=== PATIENT | male | born 1955 | race Caucasian/White ===

== ENCOUNTER 2016-08-06 14:41 | Inpatient (IN) | payer OTHER ==
--- NOTE | 2016-08-06 14:54 | EDPHY ---
HPI/HX/ROS/PE/MDM Narrative: CHIEF COMPLAINT: Nausea, vomiting. HISTORY OF PRESENT ILLNESS: The patient is a 60-year-old male that is developmentally impaired, who was brought in by EMS due to nausea and vomiting for the past week. The patient states he was unable to get up due to weakness. During transport patient was found to be hyperglycemic. The patient states he has been urinating a lot. He continues to complain of thirst. He denies fever, chills, chest pain, shortness of breath, palpitations, headache, lightheadedness. The patient has no known history of diabetes. The patient's coach builder arrived. She states the patient has been sick for the past week. He had to go home from work early. The patient was incontinent of urine. He had four days of diarrhea. This morning the patient began vomiting this morning. Mentation today was decreased, patient seemed to be disoriented. REVIEW OF SYSTEMS: Aside from elements discussed in the HPI, a comprehensive 10-point review of systems was reviewed and is negative. PAST MEDICAL HISTORY: Developmental delay. SOCIAL HISTORY: Lives independently by himself. VITAL SIGNS: Reviewed by me. GENERAL: Ketones on breath. Tachypneic. HEENT: Atraumatic. Eyes: No icterus, no injection. Mouth: Very dry mucous membranes. No erythema or lesions. Neck: supple with no adenopathy. LUNGS: Audible wheezes, hypoxic at 84%. CARDIAC: Tachycardic at 120-130, regular rhythm, no rubs, murmurs or gallops. ABDOMEN: Distended. Voluntary guarding diffusely. Soft. BACK: No CVA tenderness. EXTREMITIES: No trauma. No edema. Range of motion is normal throughout. NEURO: Alert and oriented, grossly nonfocal. SKIN: Warm and dry, no rash. PSYCHIATRIC: Normal mentation, no agitation. Portions of this note were transcribed by a medical scientific liaison. I personally performed a history, physical exam, medical decision making, and confirmed accuracy of information the transcribed note. ED Course: The patient is a 60-year-old male with developmental delay who was brought in by EMS for 1 week of nausea and vomiting. The patient has ketones on his breath. Patient is tachycardic. BGL during transport was too high to be read. The patient complains of extreme thirst and has been urinating frequently. Mucous membranes are extremely dry. The patient has no known history of diabetes. Patient appears to be in diabetic ketoacidosis. IV was established, patient is receiving fluids. I ordered an EKG, chest x-ray, labs, and UA. The patient has a creatinine of 5.4. iSTAT shows K 6.4, CO2: 9, and Glucose of 1060. The patient received 10 units of insulin. He received calcium gluconate for hyperkalemia. He was started on an insulin drip. The patient additionally received sodium bicarbonate. An X-ray of the chest was obtained. I viewed the images myself on the PACS system. See the full radiology report in the imaging section. 1605: I spoke to the hospitalist, Dr. Jenkins, who will admit the patient. 1615: The patient had an episode of dark emesis. He states he is feeling better. MDM: Diff dx considered included DKA, starvation ketosis, alcoholic ketosis, renal failure, metabolic acidosis, overdose. - Data Points Imaging Results: Imaging Impressions Chest X-Ray 08/06/16 14:56 Impression: Hypoventilation and bibasilar atelectasis. Laboratory Results: Laboratory Results 08/06/16 14:40 08/06/16 14:40 08/06/16 08/06/16 14:40 14:40 WBC 18.34 10^3/uL H 10^3/uL (3.80-9.50) RBC 5.96 10^6/uL 10^6/uL (4.40-6.38) Hgb 18.1 g/dL H g/dL (13.7-17.5) Hct 58.4 % H % (40.0-51.0) MCV 98.0 fL fL (81.5-99.8) MCH 30.4 pg pg (27.9-34.1) MCHC 31.0 g/dL L g/dL (32.4-36.7) RDW 13.1 % % (11.5-15.2) Plt Count 331 10^3/uL 10^3/uL (150-400) MPV 10.7 fL fL (8.7-11.7) Neut % (Auto) 89.6 % H % (39.3-74.2) Lymph % (Auto) 2.0 % L % (15.0-45.0) [place] % (Auto) 7.4 % % (4.5-13.0) Eos % (Auto) 0.0 % L % (0.6-7.6) Baso % (Auto) 0.2 % L % (0.3-1.7) Nucleat RBC Rel Count 0.0 % % (0.0-0.2) Absolute Neuts (auto) 16.45 10^3/uL H 10^3/uL (1.70-6.50) Absolute Lymphs (auto) 0.36 10^3/uL L 10^3/uL (1.00-3.00) Absolute Monos (auto) 1.35 10^3/uL H 10^3/uL (0.30-0.80) Absolute Eos (auto) 0.00 10^3/uL L 10^3/uL (0.03-0.40) Absolute Basos (auto) 0.03 10^3/uL 10^3/uL (0.02-0.10) Absolute Nucleated RBC 0.00 10^3/uL 10^3/uL (0-0.01) Immature Gran % 0.8 % % (0.0-1.1) Immature Gran # 0.15 10^3/uL H 10^3/uL (0.00-0.10) Sodium 131 mEq/L L mEq/L (134-144) Potassium 6.4 mEq/L H* mEq/L (3.5-5.2) Chloride 89 mEq/L L mEq/L (97-110) Carbon Dioxide 9 mEq/l L* mEq/l (22-31) Anion Gap 33 mEq/L H mEq/L (8-16) BUN 48 mg/dL H mg/dL (7-23) Creatinine 5.4 mg/dL H mg/dL (0.7-1.3) Estimated GFR 11 Glucose 1060 mg/dL H* mg/dL (70-100) Calcium 9.7 mg/dL mg/dL (8.5-10.4) Phosphorus 9.9 mg/dL H mg/dL (2.5-4.5) Magnesium 2.8 mg/dL H mg/dL (1.6-2.3) Beta-Hydroxybutyrate Pending Medications Given: Discontinued Medications Calcium Gluconate (Calcium Gluconate) 1 gm IVP EDNOW ONE Stop: 08/06/16 15:58 Last Admin: 08/06/16 16:05 Dose: 1 gm Sodium Chloride (Ns) 1,000 mls @ 0 mls/hr IV ONCE ONE PRN Reason: Wide Open Stop: 08/06/16 14:56 Last Admin: 08/06/16 14:59 Dose: 1,000 mls Sodium Chloride (Ns) 1,000 mls @ 0 mls/hr IV ONCE ONE PRN Reason: Wide Open Stop: 08/06/16 14:56 Last Admin: 08/06/16 15:20 Dose: 1,000 mls Insulin Human Regular (Humulin R) 10 unit IVP EDNOW ONE Stop: 08/06/16 15:53 Last Admin: 08/06/16 16:01 Dose: 10 unit Ondansetron HCl (Zofran) 4 mg IVP EDNOW ONE Stop: 08/06/16 15:24 Last Admin: 08/06/16 15:37 Dose: 4 mg General Initial Vital Signs: Initial Vital Signs Temperature (C) 37 C 08/06/16 14:41 Heart Rate 123 H 08/06/16 14:41 Respiratory Rate 22 H 08/06/16 14:41 Blood Pressure 121/81 H 08/06/16 14:41 O2 Sat (%) 87 L 08/06/16 14:41 O2 Delivery Mode Nasal Cannula O2 (L/minute) 2 Allergies/Adverse Reactions: No Known Allergies Allergy (Verified 08/06/16 16:48) Home Medications: Medication Instructions Recorded Loperamide HCl [Imodium 2 mg (*)] 2 - 4 mg PO Q4H PRN 08/06/16 Departure - Departure Disposition: [facility] Acute Clinical Impression: Ketoacidosis, Hyperkalemia DKA (diabetic ketoacidoses) Qualifiers: Diabetes mellitus type: due to underlying condition Diabetes mellitus complication detail: without coma Qualified Code(s): E08.10 - Diabetes mellitus due to underlying condition with ketoacidosis without coma Condition: Serious Report Scribed for: Tosin Moreno Report Scribed by: Katiuska Faye Date of Report: 08/06/16 Time of Report: 15:00
[2016-08-06] MEDS ORDERED: NS 1,000 ML IV ONE ×6 (14:55→20:00)
[2016-08-06 15:01] LABS: % IMMATURE GRANULYOCYTES 0.8 % (0.0-1.1); ABSOLUTE IMMATURE GRANULOCYTES 0.15 10^3/uL (0.00-0.10); ADD DIFF? NO; ADD MORPH? NO; ADD SCAN? NO; ATYPICAL LYMPHOCYTE FLAG 0 (0-99); FRAGMENT RBC FLAG 0 (0-99); HEMATOCRIT 58.4 % (40.0-51.0); HEMOGLOBIN 18.1 g/dL (13.7-17.5); LEFT SHIFT FLG 0 (0-99); LIPEMIA HEMOLYSIS FLAG 80 (0-99); MEAN CELL HEMOGLOBIN 30.4 pg (27.9-34.1); MEAN PLATELET VOLUME 10.7 fL (8.7-11.7); PLATELET CLUMPS FLAG 0 (0-99); PLATELET COUNT 331 10^3/uL (150-400); RED BLOOD CELL COUNT 5.96 10^6/uL (4.40-6.38); RED CELL DISTRIBUTION WIDTH 13.1 % (11.5-15.2)
--- NOTE | 2016-08-06 15:07 | CPEKG ---
Heart Rate: 105 RR Interval: 571 P-R Interval: 148 QRSD Interval: 106 QT Interval: 396 QTC Interval: 524 P [place]: 22 QRS [place]: 118 T Wave [place]: 45 EKG Severity - ABNORMAL ECG - EKG Impression: SINUS TACHYCARDIA EKG Impression: LEFT POSTERIOR FASCICULAR BLOCK EKG Impression: PROLONGED QT INTERVAL Electronically Signed By: Todd Hansen 08-Aug-2016 00:55:24
[2016-08-06 15:19] LABS: CALCIUM 9.7 mg/dL (8.5-10.4); CHLORIDE 89 mEq/L (97-110); CREATININE 5.4 mg/dL (0.7-1.3); GLOMERULAR FILTRATION RATE 11; MAGNESIUM 2.8 mg/dL (1.6-2.3); SODIUM 131 mEq/L (134-144)
[2016-08-06] MEDS ORDERED: ONDANSETRON 4 MG/2 ML VIAL IVP ONE (15:23)
[2016-08-06 15:39] LABS: ANION GAP 33 mEq/L (8-16)
[2016-08-06] MEDS ORDERED: INSULIN REGULAR HUMAN 100 UNIT/ML IVP ONE (15:52)
[2016-08-06 15:55] LABS: CARBON DIOXIDE 9 mEq/l (22-31)
[2016-08-06 15:56] LABS: GLUCOSE 1060 mg/dL (70-100)
[2016-08-06 15:57] LABS: POTASSIUM 6.4 mEq/L (3.5-5.2)
[2016-08-06] MEDS ORDERED: CALCIUM GLUC 10% 1 GM/10 ML VIAL IVP ONE (15:57)
[2016-08-06] MEDS ORDERED: INSULIN REGULAR HUMAN 100 UNIT, COSIGN. REQUIRED 1 EA in NS 100 ML IV ONE (16:11)
[2016-08-06] MEDS ORDERED: SODIUM BICARBONATE 50 MEQ/50 ML SYR IVP ONE ×2 (16:12)
[2016-08-06] MEDS ORDERED: NA BICARBONATE 50 MEQ/50 ML VIAL ONE (16:32)
[2016-08-06] MEDS ORDERED: ONDANSETRON DISINTEGRATING 4 MG TAB PO PRN (16:44)
[2016-08-06] MEDS ORDERED: oxyCODONE IR 5 MG TAB PO PRN (16:44)
[2016-08-06 16:58] LABS: ANION GAP 20 mEq/L (8-16); CALCIUM 6.3 mg/dL (8.5-10.4); CARBON DIOXIDE 8 mEq/l (22-31); CHLORIDE 109 mEq/L (97-110); CREATININE 3.8 mg/dL (0.7-1.3); GLOMERULAR FILTRATION RATE 16; SODIUM 137 mEq/L (134-144)
[2016-08-06 17:03] LABS: INR 1.06 (0.83-1.16); PROTIME(PATIENT) 13.7 SEC (12.0-15.0)
[2016-08-06 17:13] LABS: GLUCOSE 763 mg/dL (70-100); SPECIMEN HEMOLYSIS 362
[2016-08-06 17:17] LABS: POTASSIUM 6.4 mEq/L (3.5-5.2)
--- NOTE | 2016-08-06 17:44 | GHP ---
[f rep st] HISTORY AND PHYSICAL DATE OF ADMISSION: 08/06/2016 CHIEF COMPLAINT: Nausea, vomiting. HISTORY OF PRESENT ILLNESS: This is a 60-year-old man with a developmental delay, lives independently with significant support system, presents with about 1 week of abdominal pain, nausea, vomiting with diarrhea. When I am seeing him , he has received IV hydration and tells me that he feels better. His abdominal pain is not really there anymore. He has not had any diarrhea recently. He did have one episode of emesis, which was dark, in the emergency department. His brother, who found him, said that he had vomit all over the bed and suspects significant episodes of emesis. Notably, he has no history of diabetes. He does not take any insulin. PAST MEDICAL HISTORY: He actually does not have any other medical problems. MEDICATIONS: He takes no medications. PAST MEDICAL HISTORY: Developmental delay. He operates at about a 10 to 12- year-old level. MEDICATIONS: None. ALLERGIES: None. FAMILY HISTORY: No diabetes. His father had lymphoma. SOCIAL HISTORY: He lives independently. He has help from [employer] with a health care / medical job titles. His mother and brother are very involved in his care as well. He actually has 2 jobs as well. 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 REVIEW OF SYSTEMS: A 10-point review of systems is conducted and is negative, except per HPI. PHYSICAL EXAMINATION: VITAL SIGNS: Blood pressure 123/81, heart rate 113, respiration rate 20, saturating 95% on 2 L, temperature is 36.6. GENERAL: The patient is a pleasant man, who is breathing quite heavily, appears quite distressed. HEENT: Shows him to be normocephalic, atraumatic. CARDIOVASCULAR : Regular rate and rhythm. I do not appreciate any murmurs, rubs, or gallops. PULMONARY: Shows him to be in moderate to severe respiratory distress, but his lungs are clear bilaterally. ABDOMEN: Soft, nontender, nondistended. SKIN : Shows no rash. : Shows no Harris. NEUROLOGIC: Shows him to be alert and oriented x3. PSYCHIATRIC: Shows normal mood and affect. LABS: Notable for white count of 18.3. Glucose of 1060, bicarb of 9, potassium is 6.4, sodium 131, phosphorus of 9.9. Repeat basic metabolic panel is pending. DATA: 1. ECG, which I personally reviewed and interpreted, shows sinus rhythm. He has peaked T-waves throughout the precordium. He has a prolonged QT interval. 2. Chest x-ray, which I personally reviewed and interpreted, shows poor inspiratory effort. Otherwise nothing acute. IMPRESSION AND PLAN: This is a 60-year-old man with severe acidosis and hyperglycemia. 1. Anion gap metabolic acidosis, suspect that this is ketosis. He may have a starvation ketosis versus a diabetic ketoacidosis. He has been aggressively hydrated and has received insulin. Will recheck his acid base status here soon. It is rare to have a new diagnosis of DM1 in a 60 year old - if he does have DM1 would consider pancreatic imaging. 2. Hyperglycemia. No previous history of DM. I suspect this is more a HONC picture than DKA, however the treatment is the same and I will put him on the DKA protocol. I will check a c-peptide and A1c. 3. Hyperkalemia due to renal failure. This is marked. He has peaked T-waves on his initial EKG. I have ordered a stat repeat basic metabolic panel. If this is not improved, I will involve Renal, though I suspect this will improve with the interventions he has gotten including bicarb, insulin, and IV fluids. 4. Acute renal failure, pre-renal creatinine 5.4. Given his elevated phos and only slightly elevated BUN, suspect that there may be more of a chronic component to this as well. His last creatinine in our system was 1.0 however. Will aggressively rehydrate him. Repeat check is pending right now. I will check urine electrolytes as well. If this is not improving, would involve Renal. If he does not urinate, will perform a bladder scan and consider renal ultrasound. 5. Prolonged QT interval. Will be careful with QT prolonging medications. I will not give him IV Zofran. However, will keep p.o. on there as an option. I suspect that his interval will improve with correction of his acid base disorder. 6. Hypoxia. No clear reason for this. Will follow this closely. He is wheezing mildly. He may have slightly aspirated while vomiting. Monitor off antibiotics for now. 7. Developmental delay. He is quite conversant and lives independently. His brother and mother are very involved in his care. 8. Leukocytosis. I suspect that this is stress. No evidence of an infection. Urinalysis is pending right now. 9. Hemoconcentration. He is getting IV fluids. His hemoglobin is 18.1. 10. Code status is full. 11. Venous thromboembolism risk is moderate to high. I have given him subcu heparin. BILLING: I spent a total of 50 minutes of critical care time on this patient. /[id number]/MODL MTDD
[2016-08-06] MEDS ORDERED: INSULIN REGULAR HUMAN 100 UNIT in NS 100 ML IV SCH (18:22)
[2016-08-06] MEDS ORDERED: D5W 1,000 ML IV SCH (18:22)
[2016-08-06] MEDS ORDERED: D50W 25 GM/50 ML SYR IVP PRN (18:22)
[2016-08-06] MEDS ORDERED: INSULIN REGULAR HUMAN 100 UNIT/ML IVP PRN (18:22)
[2016-08-06] MEDS ORDERED: ONDANSETRON 4 MG/2 ML VIAL ONE (18:27)
[2016-08-06] MEDS ORDERED: PROTOCOL POTASSIUM 1 DOSE MISC PRN (18:31)
[2016-08-06] MEDS ORDERED: PROTOCOL MAGNESIUM 1 DOSE IV PRN (18:31)
[2016-08-06] MEDS: ONDANSETRON 4 MG/2 ML VIAL IVP PRN (18:41)
[2016-08-06 18:58] LABS: CHOLESTEROL 223 mg/dL (140-220); HIGH DENSITY LIPOPROTEIN 77 mg/dL (40-65); LDL/HDL RATIO 1.61 RATIO (1.00-3.64); LOW DENSITY LIPOPROTEIN 124 mg/dL (80-100); NON-HIGH DENSITY LIPOPROTEIN 146 mg/dL (90-129); TRIGLYCERIDE 110 mg/dL (40-150); VERY LOW DENSITY LIPOPROTEINS 22 mg/dL (8-25)
[2016-08-06 19:17] LABS: ALBUMIN 3.9 g/dL (3.5-5.0); BILIRUBIN,TOTAL 0.9 mg/dL (0.1-1.4); BILIRUBIN-CONJUGATED 0.6 mg/dL (0.0-0.5); BILIRUBIN-UNCONJUGATED 0.3 mg/dL (0.0-1.1); TOTAL PROTEIN 6.2 g/dL (6.3-8.2)
[2016-08-06] MEDS: METOCLOPRAMIDE 10 MG/2 ML VIAL IVP PRN (19:41)
[2016-08-06 20:01] LABS: GLUCOSE 787 mg/dL (70-100)
[2016-08-06] MEDS: NS 1,000 ML IV SCH (20:16)
[2016-08-06 20:32] LABS: ANION GAP 21 mEq/L (8-16); CALCIUM 8.2 mg/dL (8.5-10.4); CARBON DIOXIDE 14 mEq/l (22-31); CHLORIDE 104 mEq/L (97-110); CREATININE 4.3 mg/dL (0.7-1.3); GLOMERULAR FILTRATION RATE 14; MAGNESIUM 2.3 mg/dL (1.6-2.3); POTASSIUM 4.2 mEq/L (3.5-5.2); SODIUM 139 mEq/L (134-144)
[2016-08-06 20:53] LABS: GLUCOSE 658 mg/dL (70-100)
[2016-08-06] MEDS: TEMAZEPAM 15 MG CAP PO PRN (21:29)
[2016-08-07] MEDS: HEPARIN 5,000 UNIT/0.5 ML SYR SC SCH ×4 (00:18→22:09)
[2016-08-07] MEDS: NS 1,000 ML IV SCH (00:28)
[2016-08-07 04:14] LABS: % IMMATURE GRANULYOCYTES 0.6 % (0.0-1.1); ABSOLUTE IMMATURE GRANULOCYTES 0.09 10^3/uL (0.00-0.10); ADD DIFF? NO; ADD MORPH? NO; ADD SCAN? NO; ATYPICAL LYMPHOCYTE FLAG 0 (0-99); FRAGMENT RBC FLAG 0 (0-99); HEMATOCRIT 43.5 % (40.0-51.0); HEMOGLOBIN 14.7 g/dL (13.7-17.5); LEFT SHIFT FLG 10 (0-99); LIPEMIA HEMOLYSIS FLAG 90 (0-99); MEAN CELL HEMOGLOBIN 30.2 pg (27.9-34.1); MEAN CELL HEMOGLOBIN CONCENTR. 33.8 g/dL (32.4-36.7); MEAN CELL VOLUME 89.5 fL (81.5-99.8); MEAN PLATELET VOLUME 9.9 fL (8.7-11.7); PLATELET CLUMPS FLAG 0 (0-99); PLATELET COUNT 226 10^3/uL (150-400); RED BLOOD CELL COUNT 4.86 10^6/uL (4.40-6.38); RED CELL DISTRIBUTION WIDTH 12.7 % (11.5-15.2)
[2016-08-07 04:38] LABS: ALANINE AMINOTRANSFERASE 41 IU/L (21-72); ALBUMIN 3.3 g/dL (3.5-5.0); ALKALINE PHOSPHATASE 81 IU/L (38-126); ANION GAP 13 mEq/L (8-16); ASPARTATE AMINOTRANSFERASE 18 IU/L (17-59); BILIRUBIN,TOTAL 0.6 mg/dL (0.1-1.4); CALCIUM 8.1 mg/dL (8.5-10.4); CARBON DIOXIDE 17 mEq/l (22-31); CHLORIDE 111 mEq/L (97-110); CREATININE 4.1 mg/dL (0.7-1.3); GLOMERULAR FILTRATION RATE 15; GLUCOSE 302 mg/dL (70-100); POTASSIUM 3.9 mEq/L (3.5-5.2); SODIUM 141 mEq/L (134-144); TOTAL PROTEIN 5.7 g/dL (6.3-8.2)
[2016-08-07] MEDS ORDERED: 1/2 NS 1,000 ML IV SCH (05:30)
--- NOTE | 2016-08-07 08:28 | HOSPPROG ---
Hospitalist Progress Note Assessment/Plan: #Hyperglycemia: HHS vs DKA. No known h/o DM. A1c pending. Start glargine, SSI #Nausea/vomiting/abd distension: lipase >1000. TGs normal. Check U/S, UA #Metabolic anion gap acidosis: resolved with insulin, IVFs #ROBBIE: dehydration vs. obstruction. 450 on bladder scan. Check renal U/S #Developmental delay: very functional. Working 2 jobs, has apt. Brother in town #Leukocytosis: CXR negative. Check UA #Hyperkalemia: resolved #Hypovolemic/pseudohyponatremia: dehydration along with hyperglycemia. Cont IVFs #Diet: diabetic #DVT ppx: SQH #Disp: warrants inpt admission with hyperglycemia, warrants, insulin, serial labs Subjective: N/V resolved Objective: Vital Signs Temp Pulse Resp BP Pulse Ox 36.8 C 101 H 20 156/78 H 93 08/07/16 08:00 08/07/16 08:00 08/07/16 08:00 08/07/16 08:00 08/07/16 08:00 Laboratory Results 08/07/16 04:00 08/07/16 04:00 08/06/16 08/07/16 08/08/16 05:59 05:59 05:59 Intake Total 84906 Balance 79756 PT 13.7 SEC (12.0-15.0) 08/06/16 14:40 INR 1.06 (0.83-1.16) 08/06/16 14:40 - Physical Exam Constitutional: no apparent distress Eyes: PERRL Ears, Nose, Mouth, Throat: dry mucous membranes Cardiovascular: regular rate and rhythym, tachycardia Respiratory: no respiratory distress Gastrointestinal: normoactive bowel sounds, soft, non-tender abdomen, no palpable masses, distension Skin: warm Musculoskeletal: full muscle strength Neurologic: AAOx3 Psychiatric: interacting appropriately ICD10 Worksheet Patient Problems: Problems Problem Status Onset Hyperkalemia Acute Ketoacidosis Acute
[2016-08-07] MEDS: POTASSIUM Cl (KCl) 100 ML IV SCH ×2 (08:50→10:36)
[2016-08-07] MEDS ORDERED: ENOXAPARIN 40 MG/0.4 ML SYR SC SCH (09:00)
[2016-08-07 09:41] LABS: COLOR YELLOW; LEUKOCYTE ESTERASE,URINE NEGATIVE (NEGATIVE); NITRITE,URINE NEGATIVE (NEGATIVE)
[2016-08-07 09:45] LABS: MUCUS TRACE /lpf (NONE-1+); RBC,URINE 15-25 /hpf (0-3)
[2016-08-07] MEDS ORDERED: D50W 25 GM/50 ML SYR IVP PRN ×2 (10:38→14:55)
[2016-08-07] MEDS ORDERED: INSULIN GLARGINE 100 UNITS/ML SYRINGE SC SCH ×2 (11:00→21:00)
[2016-08-07] MEDS ORDERED: NS 1,000 ML IV SCH (11:00)
[2016-08-07] MEDS ORDERED: INSULIN LISPRO 100 UNIT/ML SC SCH ×4 (14:00→18:00)
[2016-08-07] MEDS ORDERED: D5W 1,000 ML IV SCH (14:30)
[2016-08-07 14:49] LABS: ANION GAP 18 mEq/L (8-16); CALCIUM 8.5 mg/dL (8.5-10.4); CARBON DIOXIDE 16 mEq/l (22-31); CHLORIDE 106 mEq/L (97-110); CREATININE 3.8 mg/dL (0.7-1.3); GLOMERULAR FILTRATION RATE 16; GLUCOSE 414 mg/dL (70-100); SODIUM 140 mEq/L (134-144)
[2016-08-07] MEDS: ONDANSETRON 4 MG/2 ML VIAL IVP PRN (16:09)
[2016-08-07 17:51] LABS: GLUCOSE 371 mg/dL (70-100)
[2016-08-07 22:49] LABS: ANION GAP 14 mEq/L (8-16); CALCIUM 8.6 mg/dL (8.5-10.4); CARBON DIOXIDE 18 mEq/l (22-31); CHLORIDE 104 mEq/L (97-110); CREATININE 3.3 mg/dL (0.7-1.3); GLOMERULAR FILTRATION RATE 19; GLUCOSE 339 mg/dL (70-100); POTASSIUM 4.6 mEq/L (3.5-5.2); SODIUM 136 mEq/L (134-144)
[2016-08-07] MEDS ORDERED: PARAMETERS MISC PRN (23:00)
[2016-08-07] MEDS: INSULIN REGULAR, HUMAN 100 UNIT/1 ML VIAL STANDARD SC SCH (23:25)
[2016-08-08] MEDS: ONDANSETRON 4 MG/2 ML VIAL IVP PRN (02:05)
[2016-08-08] MEDS: METOCLOPRAMIDE 10 MG/2 ML VIAL IVP PRN (02:05)
[2016-08-08 05:31] LABS: HEMATOCRIT 43.8 % (40.0-51.0); HEMOGLOBIN 14.6 g/dL (13.7-17.5); MEAN CELL HEMOGLOBIN 30.3 pg (27.9-34.1); MEAN CELL HEMOGLOBIN CONCENTR. 33.3 g/dL (32.4-36.7); MEAN CELL VOLUME 90.9 fL (81.5-99.8); RED BLOOD CELL COUNT 4.82 10^6/uL (4.40-6.38); RED CELL DISTRIBUTION WIDTH 13.1 % (11.5-15.2)
[2016-08-08] MEDS: HEPARIN 5,000 UNIT/0.5 ML SYR SC SCH ×3 (05:35→21:26)
[2016-08-08 05:57] LABS: ANION GAP 12 mEq/L (8-16); CALCIUM 8.6 mg/dL (8.5-10.4); CARBON DIOXIDE 19 mEq/l (22-31); CHLORIDE 107 mEq/L (97-110); CREATININE 3.7 mg/dL (0.7-1.3); GLOMERULAR FILTRATION RATE 17; GLUCOSE 345 mg/dL (70-100); POTASSIUM 4.6 mEq/L (3.5-5.2); SODIUM 138 mEq/L (134-144)
[2016-08-08] MEDS ORDERED: INSULIN GLARGINE 100 UNITS/ML SYRINGE SC SCH ×2 (09:00→17:58)
[2016-08-08] MEDS: INSULIN REGULAR, HUMAN 100 UNIT/1 ML VIAL STANDARD SC SCH ×4 (09:04→21:26)
--- NOTE | 2016-08-08 09:05 | HOSPPROG ---
Hospitalist Progress Note Assessment/Plan: #Hyperglycemia: HHS vs DKA. No known h/o DM. A1c pending, C-peptide pending. Start glargine, SSI #Nausea/vomiting/abd distension: lipase >1000. TGs normal. Mildly positive UA, will tx #Metabolic anion gap acidosis: resolved with insulin, IVFs #ROBBIE: appreciate Dr. Miller's consult. Suspect due to acute hyperglycemia, dehydration. No chronicity on renal U/S. Hold nephrotoxic agents. #Volume overload: due to aggressive IVF resuscitation. No more IVFs. May need to trial Lasix #Developmental delay: very functional. Working 2 jobs, has apt. Brother in town #Leukocytosis: improved. CXR negative. Mildly positive UA, will tx. Culture pending #Hyperkalemia: resolved #Urethral discharge: not sexually active, but will send for cx, G/C #Hypovolemic/pseudohyponatremia: due dehydration/hyperglycemia. Cont IVFs #Diet: diabetic #DVT ppx: SQH #Disp: warrants inpt admission with hyperglycemia, warrants, insulin, serial labs Subjective: mild emesis today. Denies SOB. Objective: Vital Signs Temp Pulse Resp BP Pulse Ox 37.1 C 104 H 17 163/76 H 92 08/08/16 08:00 08/08/16 08:00 08/08/16 08:00 08/08/16 08:00 08/08/16 08:00 Laboratory Results 08/08/16 05:20 08/08/16 05:20 08/07/16 08/08/16 08/09/16 05:59 05:59 05:59 Intake Total 45649 2447 Output Total 900 Balance 46481 1547 PT 13.7 SEC (12.0-15.0) 08/06/16 14:40 INR 1.06 (0.83-1.16) 08/06/16 14:40 - Physical Exam Constitutional: no apparent distress Eyes: PERRL Ears, Nose, Mouth, Throat: moist mucous membranes Cardiovascular: regular rate and rhythym Respiratory: no respiratory distress, other (decreased BS at bases ) Gastrointestinal: normoactive bowel sounds, distension (no TTP, +BS) Genitourinary: other (mildly bloody/purulent penile discharge. Scrotal edema) Musculoskeletal: full muscle strength Neurologic: AAOx3, CN II-XII Intact ICD10 Worksheet Patient Problems: Problems Problem Status Onset Hyperkalemia Acute Ketoacidosis Acute
--- NOTE | 2016-08-08 10:41 | SOAPPROG ---
SOAP Progress Note Assessment/Plan: Assessment:Plan: ARF-in the setting of severe hyperglycemia/new onset DM -relative oliguria after adequate volume resuscitation -only 900ml of urine out, now without harris -had 10,467 in the first day and an additional 2447 so far today -now with pulmonary edema on exam and on CXR -discontinue IVF -normal creatinine of 1 back on 05/12/2014 -normal sized kidneys on ultrasound -urine dipstick with proteinuria -will send urine studies -send SPEP and light chains to r/o paraproteinemia -unable to find any more recent outpatient labs at this time -I suspect this is all acute renal failure -no acute indications for dialysis at this time, but volume overload is a clear issue currently 08/08/16 10:41 Objective: Vital Signs Temp Pulse Resp BP Pulse Ox 37.1 C 94 22 H 135/83 H 92 08/08/16 08:00 08/08/16 10:00 08/08/16 10:00 08/08/16 10:00 08/08/16 10:00 Laboratory Results 08/08/16 05:20 08/08/16 05:20 08/07/16 08/08/16 08/09/16 05:59 05:59 05:59 [place] 46668 2447 Output Total 900 Balance 76374 1547 PT 13.7 SEC (12.0-15.0) 08/06/16 14:40 INR 1.06 (0.83-1.16) 08/06/16 14:40 ICD10 Worksheet Patient Problems: Problems Problem Status Onset Hyperkalemia Acute Ketoacidosis Acute
--- NOTE | 2016-08-08 11:23 | GHP ---
[f rep st] HISTORY AND PHYSICAL DATE OF ADMISSION: 08/06/2016 REASON FOR CONSULTATION: Renal failure. ASSESSMENT: 1. Acute renal failure, likely acute tubular necrosis. 2. New onset diabetes with severe hyperglycemia. 3. Volume overload after volume resuscitation. 4. Developmental delay. 5. Possible history of kidney stones. HISTORY: The patient is a 60-year-old male with developmental delay, admitted by Dr. Jenkins with e levated glucose of 1060. He was found to be in acute renal failure. He received insulin and aggres sive IV fluid hydration. His initial serum creatinine was elevated at 5.4. With IV fluid, he has c ome down as low as 3.3. Unfortunately, the patient has remained relatively oliguric with only 900 c c out in spite of having approximately 13 L of IV fluid administered over the last 48 hours or so. The patient has had imaging with ultrasound, as well as a noncontrast CT. Renal ultrasound showed s ymmetric kidneys with a right kidney of 12.1 cm and a left kidney of 12.[address] showed a moderate distention of the patient's urinary bladder. He has been getting bladder scans. His mo st recent scan has shown approximately 200 cc of urine in his bladder. The patient is not able to v oid and provide a urine specimen for me currently. The patient's medical history is relatively obscured. He has developmental delay. He operates at a 12-year-old level, per the admission H and P report. The patient is able to live independently wit h help from [employer], as well as a nutritional health coach. He has a mother and brother who are very involved in h is care. 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 He states he gets regular medical care through Dr. Turner Remy. I called [address] Debra Remy has worked and is currently working. There is no record of him being a patient at either of those locations. The patient describes having had some sort of kidney procedure that sounds like h e had kidney stones. Again, no record of these events is available to confirm his history. OUTPATIENT MEDICATIONS: None. ALLERGIES: None. FAMILY HISTORY: Father had lymphoma. SOCIAL HISTORY: As described above. He states he was born in [place], [place] and came out here as a child. He lives in [place]. REVIEW OF SYSTEMS: Negative, except for that included in History of Present Illness. PHYSICAL EXAMINATION: VITAL SIGNS: Temperature of 37.1, pulse 94, respirations 22, blood pressure 135/83. He is saturating 92% on 4 L nasal cannula. He is getting assistance to be up in the chair from his nurse and the physical therapist. On review of his vital signs, he has had no episodes of hypotension. He has not received nonsteroidals. He has received no IV contrast. APPEARANCE: No ap parent distress. SKIN: Unremarkable. NEUROLOGIC: Moving all extremities. Speech is clear. Answ ers the questions appropriately. NECK: Unremarkable. HEART: Regular, with no extra heart sounds. LUNGS: Decreased breath sounds about one-third up bilaterally, with fine crackles. ABDOMEN: Lobito ign. EXTREMITIES: Trace lower extremity edema. : The patient does have some significant scrotal edema. LABS: Creatinine of 3.7 today. Potassium is normal. Glucose remains elevated over 300. Urine chencho dies have shown 1+ protein and 3+ blood, with a urine sodium of 20 and a urine creatinine of 272. R ed blood cells and white blood cells are present from the specimen. I am not sure whether it was a catheterized specimen or not. ASSESSMENT: Renal failure. I suspect this is acute renal failure given the fact the patient had a normal creatinine of 1.0 back on 05/12/2014 and that he has normal-appearing kidneys on renal ultras ound. It sounds like he had severe hyperglycemia for a while. This could have resulted in a prolon ged prerenal state, resulting in ATN. He has relative oliguria. He is volume overloaded at present . I would stop his IV fluid. Caution should be taken because the patient may have worsening volume status issues that could necessitate the need for dialysis. I do not think he needs diuretics at t his time, but certainly if he does not produce more urine throughout the day today, then a trial of loop diuretic would be useful to see if we can manage his volume status in this fashion. At the current time, he does not have any acid-base or electrolyte issues that would prompt need for acute dialysis. We should go ahead and quantify his urine protein. Will rule out paraproteinemia with both serum pr otein electrophoresis and serum free light chains. Given his presentation, I do not think he needs a more elaborate serologic workup at this time. I would, of course, avoid angiotensin receptor blockers, ARIK inhibitors, nonsteroidal agents and IV contrast while the patient is in acute renal failure. We will follow along with you. Copy requested to: [employer] /[id number]/MODL
[2016-08-08 17:04] LABS: GLUCOSE 439 mg/dL (70-100)
[2016-08-08] MEDS: FUROSEMIDE 40 MG/4 ML VIAL IVP SCH (17:24)
[2016-08-08 21:51] LABS: GLUCOSE 405 mg/dL (70-100)
[2016-08-09 05:13] LABS: ALBUMIN 2.8 g/dL (3.5-5.0); ANION GAP 8 mEq/L (8-16); CALCIUM 8.6 mg/dL (8.5-10.4); CARBON DIOXIDE 23 mEq/l (22-31); CHLORIDE 108 mEq/L (97-110); CREATININE 1.6 mg/dL (0.7-1.3); GLOMERULAR FILTRATION RATE 44; GLUCOSE 285 mg/dL (70-100); MAGNESIUM 2.2 mg/dL (1.6-2.3); POTASSIUM 3.9 mEq/L (3.5-5.2); SODIUM 139 mEq/L (134-144)
[2016-08-09] MEDS: HEPARIN 5,000 UNIT/0.5 ML SYR SC SCH ×3 (06:14→21:21)
[2016-08-09] MEDS: FUROSEMIDE 40 MG/4 ML VIAL IVP SCH ×2 (08:03→08:05)
[2016-08-09] MEDS: INSULIN REGULAR, HUMAN 100 UNIT/1 ML VIAL STANDARD SC SCH ×4 (08:03→21:21)
[2016-08-09] MEDS: INSULIN GLARGINE 100 UNITS/ML SYRINGE SC SCH (08:21)
--- NOTE | 2016-08-09 13:14 | SOAPPROG ---
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 Denies sob but still on O2. Had some n/v earlier but able to eat/drink. Cr down to 1.6. Objective: Vital Signs Temp Pulse Resp BP Pulse Ox 37.1 C 97 16 137/75 H 93 08/09/16 12:12 08/09/16 12:12 08/09/16 12:12 08/09/16 12:12 08/09/16 12:12 Microbiology 08/07/16 09:52 Urine Culture - Final Urine,Clean Catch 08/08/16 14:09 Gram Stain - Final Other - Swab Laboratory Results 08/08/16 05:20 08/09/16 04:14 08/08/16 08/09/16 08/10/16 05:59 05:59 05:59 Intake Total 2447 770 Output Total 900 5100 2550 Balance 1547 -4330 -2550 PT 13.7 SEC (12.0-15.0) 08/06/16 14:40 INR 1.06 (0.83-1.16) 08/06/16 14:40 ICD10 Worksheet Patient Problems: Problems Problem Status Onset Hyperkalemia Acute Ketoacidosis Acute
[2016-08-09 14:02] LABS: GLUCOSE 342 mg/dL (70-100)
[2016-08-09 17:04] LABS: IG KAPPA FREE LIGHT CHAIN 1.23 mg/dL; IG LAMBDA FREE LIGHT CHAIN 0.839 mg/dL; KAPPA/LAMBDA RATIO 1.47
--- NOTE | 2016-08-09 17:10 | HOSPPROG ---
Hospitalist Progress Note Assessment/Plan: 60-year-old male with developmental delay presents with hyperglycemia patient is new to me today. -hyperglycemia which is now coming under better control. Patient is indiscriminately eating things off of a diabetic diet causing hyperglycemia. We have restarted his glargine insulin and are obtaining better control along with the SSI coverage. -nausea vomiting and abdominal distention with an admission lipase greater than 1000. His triglycerides were normal. Today his nausea and vomiting have resolved and he is eating well. The exact etiology of this problem is at this time unclear the 1 would have to say that he had a case of acute pancreatitis without significant pain. The elevated lipase may be related to the acute kidney injury and dehydration. Overall this problem is resolving without further complication -acute kidney injury. This probably mostly related to dehydration and hyperglycemia. We are holding all nephrotoxins agents. The Nephrology consult is appreciated -volume overload on admission. This was due to probably aggressive IV EF resuscitation. I have stopped his IV fluids. A dose of Lasix will be ordered. -leukocytosis hyperkalemia and metabolic acidosis with anion gap for now all resolving with IV fluids. -urine culture shows no growth but a urethral swab, probably a skin culture shows enterococcus faecalis. This is probably a contaminant or locally colonized region. Patient is afebrile and his white count is declining. No antibiotics will be ordered -urethral discharge with negative cultures so far a GC cultures pending -code status: Full -DVT prophylaxis with subcu heparin Subjective: Reports no complaints but says he is hungry and thirsty. No nausea vomiting chest pain and no complaints of abdominal pain. Objective: Vital Signs Temp Pulse Resp BP Pulse Ox 36.6 C 92 16 105/71 90 L 08/09/16 15:53 08/09/16 15:53 08/09/16 15:53 08/09/16 15:53 08/09/16 15:53 Microbiology 08/08/16 14:09 Gram Stain - Final Other - Swab 08/07/16 09:52 Urine Culture - Final Urine,Clean Catch Laboratory Results 08/08/16 05:20 08/09/16 13:42 08/08/16 08/09/16 08/10/16 05:59 05:59 05:59 Intake Total 2447 770 Output Total 900 5100 3000 Balance 1547 -4330 -3000 PT 13.7 SEC (12.0-15.0) 08/06/16 14:40 INR 1.06 (0.83-1.16) 08/06/16 14:40 - Time Spent With Patient Time Spent with Patient: greater than 35 minutes Time Spent with Patient: Greater than 35 minutes spent on this patients care, greater than 50% of time spent counseling, educating, and coordinating care regarding the above mentioned plan. - Pending Discharge Pending Discharge Within 24 Hours: No Pending Discharge Within 48 Hours: No - Physical Exam Constitutional: chronically ill appearing Eyes: PERRL Ears, Nose, Mouth, Throat: moist mucous membranes, hearing normal Cardiovascular: regular rate and rhythym, no murmur, rub, or gallop Respiratory: no respiratory distress, no rales or rhonchi, clear to auscultation Gastrointestinal: normoactive bowel sounds, soft, non-tender abdomen, no palpable masses Genitourinary: no bladder fullness Skin: warm Musculoskeletal: generalized weakness Neurologic: AAOx3, CN II-XII Intact Psychiatric: interacting appropriately ICD10 Worksheet Patient Problems: Problems Problem Status Onset Ketoacidosis Acute Hyperkalemia Acute
[2016-08-10 04:37] LABS: % IMMATURE GRANULYOCYTES 0.6 % (0.0-1.1); ABSOLUTE IMMATURE GRANULOCYTES 0.04 10^3/uL (0.00-0.10); ADD DIFF? NO; ADD MORPH? NO; ADD SCAN? NO; ATYPICAL LYMPHOCYTE FLAG 30 (0-99); FRAGMENT RBC FLAG 10 (0-99); HEMATOCRIT 37.9 % (40.0-51.0); HEMOGLOBIN 12.8 g/dL (13.7-17.5); LEFT SHIFT FLG 0 (0-99); LIPEMIA HEMOLYSIS FLAG 90 (0-99); MEAN CELL HEMOGLOBIN 30.8 pg (27.9-34.1); MEAN CELL HEMOGLOBIN CONCENTR. 33.8 g/dL (32.4-36.7); MEAN CELL VOLUME 91.1 fL (81.5-99.8); MEAN PLATELET VOLUME 10.4 fL (8.7-11.7); PLATELET CLUMPS FLAG 0 (0-99); PLATELET COUNT 155 10^3/uL (150-400); RED BLOOD CELL COUNT 4.16 10^6/uL (4.40-6.38); RED CELL DISTRIBUTION WIDTH 12.8 % (11.5-15.2)
[2016-08-10 05:02] LABS: ALANINE AMINOTRANSFERASE 29 IU/L (21-72); ALBUMIN 2.6 g/dL (3.5-5.0); ALKALINE PHOSPHATASE 70 IU/L (38-126); ANION GAP 7 mEq/L (8-16); ASPARTATE AMINOTRANSFERASE 18 IU/L (17-59); BILIRUBIN,TOTAL 0.9 mg/dL (0.1-1.4); CALCIUM 8.2 mg/dL (8.5-10.4); CARBON DIOXIDE 27 mEq/l (22-31); CHLORIDE 104 mEq/L (97-110); GLOMERULAR FILTRATION RATE > 60; GLUCOSE 174 mg/dL (70-100); POTASSIUM 3.5 mEq/L (3.5-5.2); SODIUM 138 mEq/L (134-144); TOTAL PROTEIN 4.7 g/dL (6.3-8.2)
[2016-08-10] MEDS: HEPARIN 5,000 UNIT/0.5 ML SYR SC SCH ×3 (05:16→21:41)
[2016-08-10] MEDS: INSULIN GLARGINE 100 UNITS/ML SYRINGE SC SCH (08:03)
[2016-08-10] MEDS: INSULIN REGULAR, HUMAN 100 UNIT/1 ML VIAL STANDARD SC SCH ×4 (08:05→21:41)
[2016-08-10] MEDS: FUROSEMIDE 40 MG/4 ML VIAL IVP SCH (08:06)
[2016-08-10] MEDS: ACETAMINOPHEN 325 MG TAB PO PRN (08:37)
--- NOTE | 2016-08-10 08:37 | HOSPPROG ---
Hospitalist Progress Note Assessment/Plan: 60-year-old male with developmental delay presents with hyperglycemia, hyperosmolar, elevated lipase. -hyperglycemia which is now coming under better control. We have restarted his glargine insulin and are obtaining better control along with the SSI coverage. -nausea vomiting and abdominal distention with an admission lipase greater than 1000. His triglycerides were normal. Today his nausea and vomiting have resolved and he is eating well. The exact etiology of this problem is at this time unclear the 1 would have to say that he had a case of acute pancreatitis without significant pain. The elevated lipase may be related to the acute kidney injury and dehydration. Overall this problem is resolving without further complication -acute kidney injury. This probably mostly related to dehydration and hyperglycemia. We are holding all nephrotoxins agents. The Nephrology consult is appreciated -acute urinary obstruction with abdominal pain: Today this was a new problem. The patient does not have a history of using a Harris catheter and thus the Harris that was placed on admission has been removed. He was unable to urinate and an bladder scan showed a residual urine of at least 7 or 800 cc. With some difficulty a coude catheter was placed. His abdominal pain improved significantly following the placement of the catheter. -volume overload on admission. This was due to probably aggressive IV EF resuscitation. I have stopped his IV fluids. A dose of Lasix will be ordered. -leukocytosis hyperkalemia and metabolic acidosis with anion gap for now all resolving with IV fluids. -urine culture shows no growth but a urethral swab, probably a skin culture shows enterococcus faecalis. This is probably a contaminant or locally colonized region. Patient is afebrile and his white count is declining. No antibiotics will be ordered -urethral discharge with negative cultures so far a GC cultures pending -code status: Full -DVT prophylaxis with subcu heparin -disposition: Patient will be discharged to [facility] on 08/12. This will also require completion of some state of forms in light of his developmental delay. Today I have discussed this with his brother Agusto and his mother who are in concurrence. His brother Alessandra a physician in [place]. -time: 45 minutes Subjective: Reports he is feeling well. Continues to eat well. No nausea vomiting shortness of breath or abdominal pain. Objective: Vital Signs Temp Pulse Resp BP Pulse Ox 36.5 C 90 19 108/77 93 08/10/16 07:09 08/10/16 07:09 08/10/16 07:09 08/10/16 07:09 08/10/16 07:09 Microbiology 08/10/16 00:54 Gastrointestinal Tract Panel (PCR) - Final Stool No Organism Detected 08/08/16 14:09 Gram Stain - Final Other - Swab 08/07/16 09:52 Urine Culture - Final Urine,Clean Catch Laboratory Results 08/10/16 04:21 08/10/16 04:21 08/09/16 08/10/16 08/11/16 05:59 05:59 05:59 Intake Total 770 400 Output Total 5100 3000 Balance -4330 -2600 PT 13.7 SEC (12.0-15.0) 08/06/16 14:40 INR 1.06 (0.83-1.16) 08/06/16 14:40 Laboratory Tests 08/07/16 08/07/16 08/09/16 04:00 20:30 14:58 WBC 15.92 H Hgb 14.7 VBG Lactic Acid 2.1 Glucose POC Glucose 296 H 08/09/16 08/09/16 08/10/16 17:18 20:26 04:21 WBC Hgb VBG Lactic Acid Glucose 174 H POC Glucose 239 H 204 H 08/10/16 08/10/16 04:21 07:00 WBC 6.45 Hgb 12.8 L VBG Lactic Acid Glucose POC Glucose 177 H - Time Spent With Patient Time Spent with Patient: greater than 35 minutes Time Spent with Patient: Greater than 35 minutes spent on this patients care, greater than 50% of time spent counseling, educating, and coordinating care regarding the above mentioned plan. - Pending Discharge Pending Discharge Within 24 Hours: No Pending Discharge Within 48 Hours: Yes Pending Discharge Date: 08/12/16 Pending Discharge Time: 11:00 - Physical Exam Constitutional: no apparent distress Eyes: PERRL Ears, Nose, Mouth, Throat: moist mucous membranes, hearing normal Cardiovascular: regular rate and rhythym, no murmur, rub, or gallop Respiratory: no respiratory distress, no rales or rhonchi, clear to auscultation Gastrointestinal: normoactive bowel sounds, soft, non-tender abdomen, no palpable masses Genitourinary: other (Significant distended bladder prior to insertion of a coude catheter. Distention resolved with 7800 cc of urine.) Skin: warm Musculoskeletal: generalized weakness Neurologic: AAOx3, CN II-XII Intact, other (Developmental age of approximately a 8-year-old.) Psychiatric: interacting appropriately ICD10 Worksheet Patient Problems: Problems Problem Status Onset Ketoacidosis Acute Hyperkalemia Acute DKA (diabetic ketoacidoses) Acute
[2016-08-10] MEDS ORDERED: LIDOCAINE 2% JELLY 20 ML (UROJECT) UR ONE (10:30)
[2016-08-11 05:18] LABS: ALBUMIN 2.4 g/dL (3.5-5.0); ANION GAP 4 mEq/L (8-16); CALCIUM 8.5 mg/dL (8.5-10.4); CARBON DIOXIDE 31 mEq/l (22-31); CHLORIDE 99 mEq/L (97-110); CREATININE 0.7 mg/dL (0.7-1.3); GLOMERULAR FILTRATION RATE > 60; GLUCOSE 156 mg/dL (70-100); MAGNESIUM 1.9 mg/dL (1.6-2.3); POTASSIUM 3.3 mEq/L (3.5-5.2); SODIUM 134 mEq/L (134-144)
[2016-08-11] MEDS: HEPARIN 5,000 UNIT/0.5 ML SYR SC SCH ×3 (05:34→22:07)
--- NOTE | 2016-08-11 08:42 | HOSPPROG ---
Hospitalist Progress Note Assessment/Plan: 60-year-old male with developmental delay presents with hyperglycemia, hyperosmolar, elevated lipase. -hyperglycemia which is now coming under better control. Glargine was restarted and due to high hyperglycemia during the daytime all increases SSI coverage to high coverage. -nausea vomiting and abdominal distention with an admission lipase greater than 1000. His triglycerides were normal. Today his nausea and vomiting have resolved and he is eating well. The exact etiology of this problem is at this time unclear the 1 would have to say that he had a case of acute pancreatitis without significant pain. The elevated lipase may be related to the acute kidney injury and dehydration. Overall this problem is resolving without further complication -acute kidney injury. This probably mostly related to dehydration and hyperglycemia. We are holding all nephrotoxins agents. The Nephrology consult is appreciated -acute urinary obstruction with abdominal pain: Today this was a new problem. The patient does not have a history of using a Harris catheter and thus the Harris that was placed on admission has been removed. He was unable to urinate and an bladder scan showed a residual urine of at least 7 or 800 cc. With some difficulty a coude catheter was placed. His abdominal pain improved significantly following the placement of the catheter. -volume overload on admission. This was due to probably aggressive IV EF resuscitation. I have stopped his IV fluids. Lasix was ordered yesterday and will be reordered today. Weights are unreliable but is I&O is showing that is negative. He continues to have peripheral edema. -leukocytosis hyperkalemia and metabolic acidosis with anion gap for now all resolving with IV fluids. -urine culture shows no growth but a urethral swab, probably a skin culture shows enterococcus faecalis. This is probably a contaminant or locally colonized region. Patient is afebrile and his white count is declining. No antibiotics will be ordered -urethral discharge with negative cultures so far a GC cultures pending -code status: Full -DVT prophylaxis with subcu heparin -disposition: Patient will be discharged to [facility] on 08/12. This will also require completion of some state of forms in light of his developmental delay. Today I have discussed this with his brother Agusto and his mother who are in concurrence. His brother Alessandra a physician in [place]. -time: 45 minutes Subjective: Reports he is feeling slowly better. Denies fever dysuria nausea vomiting his appetite is better. Objective: Vital Signs Temp Pulse Resp BP Pulse Ox 36.4 C 88 18 102/65 92 08/11/16 07:44 08/11/16 07:44 08/11/16 07:44 08/11/16 07:44 08/11/16 07:44 Microbiology 08/08/16 14:09 Gram Stain - Final Other - Swab Wound Culture - Final Enterococcus Faecalis 08/10/16 00:54 Gastrointestinal Tract Panel (PCR) - Final Stool No Organism Detected Laboratory Results 08/10/16 04:21 08/11/16 04:18 08/10/16 08/11/16 08/12/16 05:59 05:59 05:59 Intake Total 400 1400 Output Total 3000 3350 200 Balance -2600 -1950 -200 PT 13.7 SEC (12.0-15.0) 08/06/16 14:40 INR 1.06 (0.83-1.16) 08/06/16 14:40 Laboratory Tests 08/07/16 08/07/16 08/10/16 04:00 20:30 04:21 WBC 15.92 H 6.45 Hgb 14.7 12.8 L VBG Lactic Acid 2.1 Glucose POC Glucose 08/10/16 08/10/16 08/10/16 11:04 16:02 17:23 WBC Hgb VBG Lactic Acid Glucose POC Glucose 229 H > 350 H 324 H 08/10/16 08/11/16 08/11/16 20:46 04:18 08:15 WBC Hgb VBG Lactic Acid Glucose 156 H POC Glucose 264 H 182 H WBC has declined; I&O negative without significant weight change; seems to require a harris to urinate; glucose continues to be high at times, lower during night - Time Spent With Patient Time Spent with Patient: greater than 35 minutes Time Spent with Patient: Greater than 35 minutes spent on this patients care, greater than 50% of time spent counseling, educating, and coordinating care regarding the above mentioned plan. - Pending Discharge Pending Discharge Within 24 Hours: No Pending Discharge Within 48 Hours: Yes Pending Discharge Date: 08/13/16 Pending Discharge Time: 11:00 - Physical Exam Constitutional: no apparent distress Eyes: PERRL Ears, Nose, Mouth, Throat: moist mucous membranes Cardiovascular: regular rate and rhythym, no murmur, rub, or gallop Respiratory: no respiratory distress, no rales or rhonchi Gastrointestinal: normoactive bowel sounds, soft, non-tender abdomen, no palpable masses Genitourinary: no bladder fullness, other (Harris is in place. Rectal exam showed an enlarged prostate consistent with BPH. No tenderness or masses were felt no stools obtain.) Skin: warm Musculoskeletal: other (1 to 2+ peripheral edema) Psychiatric: interacting appropriately ICD10 Worksheet Patient Problems: Problems Problem Status Onset Ketoacidosis Acute Hyperkalemia Acute DKA (diabetic ketoacidoses) Acute
[2016-08-11] MEDS: FUROSEMIDE 40 MG/4 ML VIAL IVP SCH (09:04)
[2016-08-11] MEDS: INSULIN REGULAR, HUMAN 100 UNIT/1 ML VIAL STANDARD SC SCH ×2 (09:04→12:28)
[2016-08-11] MEDS: INSULIN GLARGINE 100 UNITS/ML SYRINGE SC SCH (10:24)
[2016-08-11] MEDS ORDERED: D50W 25 GM/50 ML SYR IVP PRN (14:38)
[2016-08-11] MEDS ORDERED: PROTOCOL POTASSIUM 1 DOSE MISC PRN (14:40)
[2016-08-11] MEDS: INSULIN REGULAR HUMAN 100 UNIT/ML SC SCH ×2 (17:36→20:15)
[2016-08-11] MEDS ORDERED: POTASSIUM CL 10 MEQ TAB PO ONE (19:54)
[2016-08-12] MEDS: HEPARIN 5,000 UNIT/0.5 ML SYR SC SCH ×3 (05:31→21:06)
[2016-08-12 05:39] LABS: ALBUMIN 2.5 g/dL (3.5-5.0); ANION GAP 4 mEq/L (8-16); CALCIUM 8.1 mg/dL (8.5-10.4); CARBON DIOXIDE 31 mEq/l (22-31); CHLORIDE 98 mEq/L (97-110); CREATININE 0.6 mg/dL (0.7-1.3); GLOMERULAR FILTRATION RATE > 60; GLUCOSE 159 mg/dL (70-100); MAGNESIUM 1.9 mg/dL (1.6-2.3); POTASSIUM 3.6 mEq/L (3.5-5.2); SODIUM 133 mEq/L (134-144)
[2016-08-12] MEDS ORDERED: POTASSIUM CL 10 MEQ TAB PO ONE ×2 (07:26→19:45)
[2016-08-12] MEDS: INSULIN GLARGINE 100 UNITS/ML SYRINGE SC SCH (07:54)
[2016-08-12] MEDS: FUROSEMIDE 40 MG/4 ML VIAL IVP SCH (07:55)
[2016-08-12] MEDS: INSULIN REGULAR HUMAN 100 UNIT/ML SC SCH ×4 (08:06→21:06)
[2016-08-12 13:36] LABS: HEMOGLOBIN A1C 13.2 % (4.0-5.6)
--- NOTE | 2016-08-12 16:45 | HOSPPROG ---
Hospitalist Progress Note Assessment/Plan: 60-year-old male with developmental delay presents with hyperglycemia, hyperosmolar, elevated lipase, pancreatitis. -diabetic ketoacidosis on presentation with a glucose greater than 1000 lactate 2.1 and an anion gap of 33. He was treated with aggressive fluid resuscitation bicarbonate drip insulin and progressively improved. Currently he continues to have increasing insulin needs as his diet and food intake is increasing. Today on SSI coverage she used 50 units of regular insulin. Thus I will add Lantus 20 units at bedtime to his already Lantus 25 units in the a.m. I have also added today metformin. -acute kidney injury on presentation with a creatinine of 5.4. Creatinine is now normal at 0.6. -acute pancreatitis on presentation with a lipase of 1406 lipase is now normal with normal triglycerides and abdominal pain is resolved. Abdominal ultrasound showed no evidence of gallbladder disease, fatty liver, and borderline splenomegaly. CT scan showed some fatty infiltration around the pancreas. -edema: This is secondary to aggressive fluid hydration during his resuscitation. He is on Lasix IV daily and has a persistent negative JESSICA without a weight change. Clinically is edema is declining. A few more days of diuresis may be necessary. -diabetes mellitus: This is a new diagnosis for this gentleman. His hemoglobin A1c is 13.2 thus he has been with hyperglycemia for some time which has not been treated. I have started metformin here at this time in the hospital, he is on Lantus twice daily, and requiring SSI coverage regularly. An outpatient endocrinology follow-up will be necessary. -acute urinary obstruction with benign prostatic hypertrophy. Patient does not normally use of Harris catheter yet he was unable to urinate without a Harris. Thus after discontinuing the Harris was replaced. I suggest leaving the Harris catheter in place until he can be seen by Urology for BPH. Some of the home prostatic edema may resolve as the acute illness resolves and is edema resolves. -developmental delay: The gentleman lives in a care facility with 5 other people. He has watch closely by his brother who is a physician in [place] and his mother. Appropriate disposition arrangements will need to be made regarding his developmental delay. -urine culture showed no growth by the urethral swab grew enterococcus faecalis which is probably a contaminant. No antibiotics were ordered -code status: Full -DVT prophylaxis with subcu heparin -disposition: Patient will be discharged to [facility] on 08/12. This will also require completion of some state of forms in light of his developmental delay. Today I have discussed this with his brother Agusto and his mother who are in concurrence. His brother Alessandra a physician in [place]. -time: 45 minutes Subjective: Reports he is feeling well without complaints. JESSICA was-1500 cc although there was no weight change. Objective: Vital Signs Temp Pulse Resp BP Pulse Ox 36.6 C 85 18 107/72 92 08/12/16 12:00 08/12/16 12:00 08/12/16 12:00 08/12/16 12:00 08/12/16 12:00 Laboratory Results 08/10/16 04:21 08/12/16 04:36 08/11/16 08/12/16 08/13/16 05:59 05:59 05:59 Intake Total 1400 1250 Output Total 3350 3150 700 Balance -1950 -1900 -700 PT 13.7 SEC (12.0-15.0) 08/06/16 14:40 INR 1.06 (0.83-1.16) 08/06/16 14:40 - Time Spent With Patient Time Spent with Patient: greater than 35 minutes Time Spent with Patient: Greater than 35 minutes spent on this patients care, greater than 50% of time spent counseling, educating, and coordinating care regarding the above mentioned plan. - Pending Discharge Pending Discharge Within 24 Hours: Yes Pending Discharge Date: 08/13/16 Pending Discharge Time: 11:00 - Physical Exam Constitutional: no apparent distress Eyes: PERRL Ears, Nose, Mouth, Throat: moist mucous membranes Cardiovascular: regular rate and rhythym, no murmur, rub, or gallop Respiratory: no respiratory distress, no rales or rhonchi, clear to auscultation Gastrointestinal: normoactive bowel sounds, soft, non-tender abdomen, no palpable masses Genitourinary: no bladder fullness, other (Harris catheter in place) Skin: warm Musculoskeletal: full muscle strength Neurologic: AAOx3, CN II-XII Intact Psychiatric: interacting appropriately, other (Intellectual level of approximately a 7-year-old.) ICD10 Worksheet Patient Problems: Problems Problem Status Onset Ketoacidosis Acute Hyperkalemia Acute DKA (diabetic ketoacidoses) Acute
[2016-08-12] MEDS: metFORMIN HCL 500 MG TAB PO SCH ×2 (18:08→19:17)
[2016-08-12 18:47] LABS: POTASSIUM 3.3 mEq/L (3.5-5.2)
[2016-08-12] MEDS ORDERED: INSULIN GLARGINE 100 UNITS/ML SYRINGE SC SCH (21:00)
[2016-08-12 23:23] VITALS: O2SAT 92
[2016-08-13] MEDS: TEMAZEPAM 15 MG CAP PO PRN (00:45)
[2016-08-13 05:24] LABS: ALBUMIN 2.4 g/dL (3.5-5.0); ANION GAP 6 mEq/L (8-16); CALCIUM 8.3 mg/dL (8.5-10.4); CARBON DIOXIDE 32 mEq/l (22-31); CHLORIDE 97 mEq/L (97-110); CREATININE 0.6 mg/dL (0.7-1.3); GLOMERULAR FILTRATION RATE > 60; GLUCOSE 176 mg/dL (70-100); MAGNESIUM 2.1 mg/dL (1.6-2.3); POTASSIUM 3.6 mEq/L (3.5-5.2); SODIUM 135 mEq/L (134-144)
[2016-08-13] MEDS: HEPARIN 5,000 UNIT/0.5 ML SYR SC SCH (05:54)
[2016-08-13 07:56] VITALS: BP 122/79; PULSE 84; RESP 18; TEMP 98.6
--- NOTE | 2016-08-13 09:05 | PDIAF ---
- Diagnosis Diagnosis: uncontrolled newly diagnosed DM Code Status: Full Code - Medication Management Discharge Medications: Medications to Continue on Transfer RX: Loperamide HCl [Imodium 2 mg (*)] 2 - 4 mg PO Q4H PRN 08/06/16 [Last Taken 08/05/16] RX: Insulin Glargine [Lantus 100 UNITS/ML (*)] 20 units SC DAILY #0 ml 08/13/16 [Last Taken Unknown] RX: Insulin Glargine [Lantus 100 UNITS/ML (*)] 20 units SC HS #0 ml 08/13/16 [ Last Taken Unknown] RX: metFORMIN HCL [Glucophage 500 mg (*)] 500 mg PO BIDMEAL #0 tab 08/13/16 [ Last Taken Unknown] Tamsulosin HCl [Flomax 0.4 MG (*)] 0.4 mg PO DAILY #30 cap 08/13/16 [Last Taken Unknown] Discharge Medications: Refer to the Discharge Home Medication list for PRN reason. - Orders Diet Recommendation: ADA 1800 consistent carb Harris: Yes - Follow Up Care Current Providers and Referrals: Patient,NotPresent [Unknown] - As per Instructions
[2016-08-13] MEDS ORDERED: POTASSIUM CL 10 MEQ TAB PO ONE (09:09)
--- NOTE | 2016-08-13 09:11 | PDIAF ---
- Diagnosis Diagnosis: uncontrolled newly diagnosed DM Code Status: Full Code - Medication Management Discharge Medications: Medications to Continue on Transfer Loperamide HCl [Imodium 2 mg (*)] 2 - 4 mg PO Q4H PRN 08/06/16 [Last Taken 08/05] Insulin Aspart [novoLOG] 0 - 10 unit SC ACHS PRN #1 vial 08/13/16 [Last Taken Unknown] Insulin Glargine [Lantus 100 UNITS/ML (*)] 20 units SC DAILY #0 ml 08/13/16 [ Last Taken Unknown] Insulin Glargine [Lantus 100 UNITS/ML (*)] 20 units SC HS #0 ml 08/13/16 [Last Taken Unknown] Tamsulosin HCl [Flomax 0.4 MG (*)] 0.4 mg PO DAILY #30 cap 08/13/16 [Last Taken Unknown] metFORMIN HCL [Glucophage 500 mg (*)] 500 mg PO BIDMEAL #0 tab 08/13/16 [Last Taken Unknown] Discharge Medications: Refer to the Discharge Home Medication list for PRN reason. - Orders Diet Recommendation: ADA 1800 consistent carb Harris: Yes Additional: check blood sugars ac/hs - Follow Up Care Current Providers and Referrals: Patient,NotPresent [Unknown] - As per Instructions
[2016-08-13] MEDS: ACETAMINOPHEN 325 MG TAB PO PRN (09:22)
[2016-08-13] MEDS: FUROSEMIDE 40 MG/4 ML VIAL IVP SCH (09:22)
[2016-08-13] MEDS: INSULIN REGULAR HUMAN 100 UNIT/ML SC SCH ×2 (09:23→12:49)
[2016-08-13] MEDS: metFORMIN HCL 500 MG TAB PO SCH (09:23)
[2016-08-13] MEDS: INSULIN GLARGINE 100 UNITS/ML SYRINGE SC SCH (09:23)
--- NOTE | 2016-08-13 16:09 | GDS ---
[f rep st] DISCHARGE SUMMARY DISCHARGE DIAGNOSES: 1. Uncontrolled newly diagnosed diabetes mellitus with diabetic ketoacidosis. 2. Resolved acute kidney injury, likely multifactorial due to above, in addition to obstructive uro jus. 3. Acute urinary obstruction with benign prostatic hypertrophy requiring Harris catheter placement. 4. Elevated lipase possibly due to acute pancreatitis versus diabetic ketoacidosis. 5. Edema. 6. Developmental delay. CONSULTANTS: None. HOSPITAL COURSE AND STAY BY PROBLEM: 1. Newly diagnosed, uncontrolled diabetes mellitus: The patient presented with DKA. He has since been transitioned to glargine, metformin and sliding scale. On day of discharge his blood sugars ar e adequately controlled with a fasting blood sugar of 176. His hemoglobin A1c done this hospitaliza tion was elevated at 13.2. 2. Obstructive uropathy and renal failure: On initial presentation his creatinine was 5.4, which i s down to 0.6. A Harris catheter was placed on initial presentation, which we have tried to remove, however, the patient has continued to have urinary retention. A Harris catheter was reinserted. On day of discharge he is being started on Flomax. He will need to have the Harris catheter in place un til the Flomax can start working and he can have a trial of voiding. PHYSICAL EXAM: VITAL SIGNS: On day of discharge blood pressure is 122/79, pulse of 84, respiratory rate 18, O2 saturation 92% on 2 L, temperature afebrile. GENERAL: In no acute distress. HEART: S1, S2. LUNGS: Clear. ABDOMEN: Soft. EXTREMITIES: Have mild edema, Harris catheter is in place. LABORATORY DATA: Pertinent labs and studies done this hospital stay, a CT of the abdomen and pelvis done 08/07/2016, refer to report for details. Abdominal ultrasound done 08/07/2016 showed a fatty liver, borderline splenomegaly, refer to report for full details. DISCHARGE MEDICATIONS: Please refer to discharge medication reconciliation in [facility] for full det ails, below is a preliminary list. New medications on hospital discharge, metformin 500 mg p.o. twice daily, glargine insulin 20 units subcutaneous twice daily, NovoLog insulin sliding scale to be used as directed, Flomax 0.4 mg daily. All other home medications are to be continued as usual home dosages. DISCHARGE INSTRUCTIONS: The patient will be discharged to assisted facility with a Harris cat heter in place. Once again, he was just started on Flomax on the day of discharge. I would recomme nd holding off on removing the Harris catheter until the Flomax can start working. He possibly will need outpatient urology followup. He will need close monitoring of his blood sugars with sugar chec ks before meals and at bedtime, and further titration of his glargine insulin to obtain a goal of a fasting morning blood sugar between 90 and 110. While in the hospital he was treated with IV Lasix while in the hospital, which I am not sending him out on. If he continues to have swelling he may n eed further consideration to continue outpatient treatment with a diuretic. Greater than 30 minutes were spent on the discharge of this dictation. /[id number]
== END 2016-08-13 13:26 | DRG 638 ==
LOC: EDUNIT# → F2N 17:32 → F3N 08-08 16:04
PROVIDERS: ADMIT Student in an Organized Health Care Education/Training Program; ATTEND Student in an Organized Health Care Education/Training Program
DX: E13.10 Other specified diabetes mellitus with ketoacidosis without coma (principal); E13.29 Other specified diabetes mellitus with other diabetic kidney complication; N17.9 Acute kidney failure, unspecified; N13.9 Obstructive and reflux uropathy, unspecified; N40.1 Benign prostatic hyperplasia with lower urinary tract symptoms; F89 Unspecified disorder of psychological development; E87.5 Hyperkalemia
CPT/HCPCS: 82947-QW; 84681-90; 96374; 97116-GP; 97162-GP; 97165-GO; 97535-GO; G8978-GP-CJ; G8979-GP-CI; G8987-GO-CK; G8988-GO-CI; J0610; J0696; J1815; J2405; J2765

== ENCOUNTER 2016-08-24 03:14 | Emergency (ER) | payer OTHER ==
[2016-08-24] MEDS ORDERED: LIDOCAINE 2% JELLY 20 ML (UROJECT) ONE (03:25)
[2016-08-24 03:28] VITALS: RESP 18
[2016-08-24] MEDS ORDERED: LIDOCAINE 2% JELLY 20 ML (UROJECT) UR ONE (03:50)
--- NOTE | 2016-08-24 03:51 | EDPHY ---
H & P Stated Complaint: urinary cathter pulled out bladder distention Time Seen by Provider: 08/24/16 03:17 HPI/ROS: HPI The patient presents with urinary retention after his catheter fell out earlier this evening. He has a Harris catheter in place for what seems to be BPH according to his records. It fell out earlier today and the patient has not been able to void. He is brought in by ambulance from [facility]. There they tried to replace the Harris without any success, thus the patient was transferred to the ER. The patient has no complaints the would like to go home as soon as possible. He has a UA which was performed on August 22 which demonstrates bacteria and white blood cells, urine culture is pending. He is not currently on antibiotics REVIEW OF SYSTEMS Constitutional: No fever, no chills. Eyes: No discharge. ENT: No sore throat. Cardiovascular: No chest pain, no palpitations. Respiratory: No cough, no shortness of breath. Gastrointestinal: No abdominal pain, no vomiting. Genitourinary: No hematuria. Musculoskeletal: No back pain. Skin: No rashes. Neurological: No headache. PMHx: Diabetes, developmental delay Soc Hx: Lives at [facility] FHx: PHYSICAL General Appearance: Alert, no distress Eyes: Pupils equal and round no pallor or injection ENT, Mouth: Mucous membranes moist Respiratory: There are no retractions, lungs are clear to auscultation Cardiovascular: Regular rate and rhythm Gastrointestinal: Abdomen is soft with suprapubic distension Neurological: A&O, moves all extremities Skin: Warm and dry, no rashes Musculoskeletal: Neck is supple non tender Extremities: symmetrical, full range of motion Psychiatric: Patient is oriented X 3, there is no agitation Source: Patient, EMS, senior living records - Personal History Current Tetanus/Diphtheria Vaccine: Yes Current Tetanus Diphtheria and Acellular Pertussis (TDAP): Yes - Medical/Surgical History Hx Asthma: No Hx Chronic Respiratory Disease: No Hx Diabetes: No Hx Cardiac Disease: No Hx Renal Disease: No Hx Cirrhosis: No Hx Alcoholism: No Hx HIV/AIDS: No Hx Splenectomy or Spleen Trauma: No Other PMH: mentally delayed - Social History Smoking Status: Never smoked Constitutional: Initial Vital Signs Temperature (C) 36.8 C 08/24/16 03:20 Heart Rate 116 H 08/24/16 03:20 Respiratory Rate 18 08/24/16 03:20 Blood Pressure 172/96 H 08/24/16 03:20 O2 Sat (%) 92 08/24/16 03:20 O2 Delivery Mode Room Air Allergies/Adverse Reactions: No Known Allergies Allergy (Verified 08/06/16 16:48) Home Medications: Medication Instructions Recorded Loperamide HCl [Imodium 2 mg (*)] 2 - 4 mg PO Q4H PRN 08/06/16 Insulin Aspart [novoLOG] 0 - 10 unit SC ACHS PRN #1 vial 08/13/16 Insulin Glargine [Lantus 100 20 units SC DAILY #0 ml 08/13/16 UNITS/ML (*)] Insulin Glargine [Lantus 100 20 units SC HS #0 ml 08/13/16 UNITS/ML (*)] Tamsulosin HCl [Flomax 0.4 MG (*)] 0.4 mg PO DAILY #30 cap 08/13/16 metFORMIN HCL [Glucophage 500 mg 500 mg PO BIDMEAL #0 tab 08/13/16 (*)] Medical Decision Making Differential Diagnosis: This is a 60-year-old man with diabetes, developmental delay, from [facility] who presents with urinary retention in the setting of Harris catheter which was dislodged and was unable to be replaced at his custodial. Differential diagnosis includes BPH, infection, urethral injury. In the emergency room our nurse was able to pass a Harris catheter without much difficulty. This resulted in the return of 1200 mL of urine, initially slightly bloody then clear. Because of recent UA performed just 2 days ago without any current symptoms of UTI, I will not repeat UA now. It appears that culture is pending and can be followed up at the custodial. - Data Points Medications Given: Discontinued Medications Lidocaine (Uroject Lidocaine 2% Jelly) 20 ml UR EDNOW ONE Stop: 08/24/16 03:51 Last Admin: 08/24/16 04:08 Dose: 20 ml Departure - Departure Disposition: Home, Routine, Self-Care Clinical Impression: Urinary retention Condition: Good Instructions: Harris Catheter Placement and Care (ED) Additional Instructions: Follow up with PCP for urine culture results and treatment. Referrals: VIC LEWIS [Other] - As per Instructions
[2016-08-24 05:03] VITALS: BP 122/64; PULSE 84; TEMP 97.9; O2SAT 93
== END 2016-08-24 05:04 | disposition home or self-care (01) ==
LOC: EDUNIT#
PROC: 0T9B70Z Drainage of Bladder with Drainage Device, Via Natural or Artificial Opening (ICD-10-PCS; principal; 2016-08-24)
DX: R33.9 Retention of urine, unspecified (principal); E11.9 Type 2 diabetes mellitus without complications; Z79.4 Long term (current) use of insulin; Z79.84 Long term (current) use of oral hypoglycemic drugs

== ENCOUNTER 2016-09-05 01:46 | Emergency (ER) | payer OTHER ==
[2016-09-05] MEDS ORDERED: LIDOCAINE 2% JELLY 20 ML (UROJECT) ONE (01:50)
[2016-09-05 02:29] VITALS: O2SAT 92
[2016-09-05 02:41] LABS: COLOR YELLOW; LEUKOCYTE ESTERASE,URINE 3+ (NEGATIVE); NITRITE,URINE NEGATIVE (NEGATIVE)
[2016-09-05 02:48] LABS: BACTERIA 1+ /hpf (NONE SEEN); MUCUS TRACE /lpf (NONE-1+); RBC,URINE 50-182 /hpf (0-3); WBC,URINE 50-182 /hpf (0-3)
--- NOTE | 2016-09-05 03:01 | EDPHY ---
H & P Stated Complaint: pulled out harris catheter with baloon tip intact Time Seen by Provider: 09/05/16 01:50 HPI/ROS: HPI The patient presents with Harris catheter problem. He is brought in by ambulance from [facility]. He has a chronic indwelling Harris catheter for urinary retention related to enlarged prostate. He pulled out the catheter with the balloon in place earlier this evening. The nurse tried to replace it several times without difficulty, thus transfer the patient to the hospital. Here he has no complaints. He does not have any pain, any fevers or chills.. REVIEW OF SYSTEMS Constitutional: No fever, no chills. Eyes: No discharge. ENT: No sore throat. Cardiovascular: No chest pain, no palpitations. Respiratory: No cough, no shortness of breath. Gastrointestinal: No abdominal pain, no vomiting. Genitourinary: No hematuria. Musculoskeletal: No back pain. Skin: No rashes. Neurological: No headache. PMHx: Developmental delay, urinary retention Soc Hx: prison resident PHYSICAL General Appearance: Alert, no distress Eyes: Pupils equal and round no pallor or injection ENT, Mouth: Mucous membranes moist Respiratory: There are no retractions, lungs are clear to auscultation Cardiovascular: Regular rate and rhythm Gastrointestinal: Abdomen is soft and non-tender, no masses, bowel sounds normal Neurological: A&O, moves all extremities Skin: Warm and dry, no rashes Musculoskeletal: Neck is supple non tender Extremities: symmetrical, full range of motion Psychiatric: Patient is oriented, there is no agitation Source: Patient, EMS - Personal History Current Tetanus/Diphtheria Vaccine: Unsure Current Tetanus Diphtheria and Acellular Pertussis (TDAP): Unsure - Medical/Surgical History Hx Asthma: No Hx Chronic Respiratory Disease: No Hx Diabetes: No Hx Cardiac Disease: No Hx Renal Disease: No Hx Cirrhosis: No Hx Alcoholism: No Hx HIV/AIDS: No Hx Splenectomy or Spleen Trauma: No Other PMH: mentally delayed - Social History Smoking Status: Never smoked Constitutional: Initial Vital Signs Temperature (C) 36.6 C 09/05/16 02:10 Heart Rate 120 H 09/05/16 02:10 Respiratory Rate 20 09/05/16 02:10 Blood Pressure 162/100 H 09/05/16 02:10 O2 Sat (%) 92 09/05/16 02:10 O2 Delivery Mode Nasal Cannula O2 (L/minute) 2 Allergies/Adverse Reactions: No Known Allergies Allergy (Verified 08/06/16 16:48) Home Medications: Medication Instructions Recorded Loperamide HCl [Imodium 2 mg (*)] 2 - 4 mg PO Q4H PRN 08/06/16 Insulin Aspart [novoLOG] 0 - 10 unit SC ACHS PRN #1 vial 08/13/16 Insulin Glargine [Lantus 100 20 units SC DAILY #0 ml 08/13/16 UNITS/ML (*)] Insulin Glargine [Lantus 100 20 units SC HS #0 ml 08/13/16 UNITS/ML (*)] Tamsulosin HCl [Flomax 0.4 MG (*)] 0.4 mg PO DAILY #30 cap 08/13/16 metFORMIN HCL [Glucophage 500 mg 500 mg PO BIDMEAL #0 tab 08/13/16 (*)] levOFLOXACIN [levAQUIN (*)] 750 mg PO DAILY #10 tab 09/05/16 Medical Decision Making Differential Diagnosis: This is a 60-year-old man with developmental delay, chronic indwelling Harris for urinary retention related to BPH who presents brought in by ambulance from his [facility] after his Harris was pulled out with balloon inflated and nurses were unable to replace it in the [facility]. Differential diagnosis includes urinary tract infection, urethral trauma, BPH. In the emergency room, the nurses were able to pass a Harris catheter, using a coude. The patient had large volume of urine out. This was sent for testing and did exhibit signs of infection. I have started him on Levaquin for this. Urine culture has been sent and we can tailor further antibiotic treatment based on culture. - Data Points Laboratory Results: 09/05/16 02:20 Urine Color YELLOW Urine Appearance MODERATELY TURBID Urine pH 6.0 (5.0-7.5) Ur Specific Hillister 1.011 (1.002-1.030) Urine Protein 1+ H (NEGATIVE) Urine Ketones NEGATIVE (NEGATIVE) Urine Blood 2+ H (NEGATIVE) Urine Nitrate NEGATIVE (NEGATIVE) Urine Bilirubin NEGATIVE (NEGATIVE) Urine Urobilinogen NEGATIVE EU EU (0.2-1.0) Ur Leukocyte Esterase 3+ H (NEGATIVE) Urine RBC 50-182 /hpf H /hpf (0-3) Urine WBC 50-182 /hpf H /hpf (0-3) Ur Epithelial Cells NONE SEEN /lpf /lpf (NONE-1+) Urine Bacteria 1+ /hpf H /hpf (NONE SEEN) Urine Mucus TRACE /lpf /lpf (NONE-1+) Urine Glucose NEGATIVE (NEGATIVE) Medications Given: Discontinued Medications Levofloxacin (Levaquin) 750 mg PO EDNOW ONE PRN Reason: Protocol Stop: 09/05/16 03:01 Last Admin: 09/05/16 03:12 Dose: 750 mg Departure - Departure Disposition: Home, Routine, Self-Care Clinical Impression: Urinary tract infection Qualifiers: Urinary tract infection type: catheter-associated UTI Indwelling urinary catheter type: indwelling urethral catheter Encounter type: initial encounter Qualified Code(s): T83.511A - Infection and inflammatory reaction due to indwelling urethral catheter, initial encounter Harris catheter problem Qualifiers: Encounter type: initial encounter Qualified Code(s): T83.9XXA - Unspecified complication of genitourinary prosthetic device, implant and graft, initial encounter Condition: Good Instructions: Urinary Tract Infection in Men (ED), Hraris Catheter Placement and Care (ED) Additional Instructions: I have started you on Levaquin because your urine appears to be infected. Your doctor may decide to stop the antibiotic depending on the results of the urine culture which we have sent today. Referrals: Patient,NotPresent [Primary Care Provider] - As per Instructions Prescriptions: levOFLOXACIN [levAQUIN (*)] 750 mg PO DAILY #10 tab
[2016-09-05 03:13] VITALS: BP 133/84; PULSE 100; RESP 16; TEMP 98.4
== END 2016-09-05 03:18 | disposition home or self-care (01) ==
LOC: EDUNIT#
PROC: 0T9B70Z Drainage of Bladder with Drainage Device, Via Natural or Artificial Opening (ICD-10-PCS; principal; 2016-09-05)
DX: T83.091A Other mechanical complication of indwelling urethral catheter, initial encounter (principal); T83.511A Infection and inflammatory reaction due to indwelling urethral catheter, initial encounter; B95.2 Enterococcus as the cause of diseases classified elsewhere; Z79.4 Long term (current) use of insulin; Z79.84 Long term (current) use of oral hypoglycemic drugs; Y73.2 Prosthetic and other implants, materials and accessory gastroenterology and urology devices associated with adverse incidents

== ENCOUNTER 2018-08-14 06:44 | Inpatient (IN) | payer OTHER, MEDICAID ==
[2018-08-14] MEDS ORDERED: ACETAMINOPHEN 325 MG TAB PO ONE (07:03)
[2018-08-14] MEDS ORDERED: NS 1,000 ML IV ONE ×2 (07:09→10:26)
[2018-08-14 07:23] LABS: PLATELET COUNT 333 10^3/uL (150-400)
[2018-08-14 07:39] LABS: INR 1.19 (0.83-1.16); PROTIME(PATIENT) 14.6 SEC (12.0-15.0)
--- NOTE | 2018-08-14 07:40 | EDPHY ---
H & P Stated Complaint: urosepsis? Time Seen by Provider: 08/14/18 07:13 HPI/ROS: CHIEF COMPLAINT: Chills, vomiting HISTORY OF PRESENT ILLNESS: 62-year-old male with diabetes presents with chills and vomiting. Onset of moderate dysuria 1 week ago. Chills started yesterday evening, associated with multiple episodes of vomiting during the night. Unable to sleep d/t vomiting and chills. Associated with generalized weakness and fatigue. Nursing staff noted fever this morning. No abdominal pain or other associated symptoms. No alleviating or aggravating factors. History of urinary tract infection in the past. REVIEW OF SYSTEMS: complete 10 point ROS reviewed and is negative except for the noted elements in the HPI Source: Patient - Personal History Current Tetanus/Diphtheria Vaccine: Unsure Current Tetanus Diphtheria and Acellular Pertussis (TDAP): Unsure - Medical/Surgical History Hx Asthma: No Hx Chronic Respiratory Disease: No Hx Diabetes: No Hx Cardiac Disease: No Hx Renal Disease: No Hx Cirrhosis: No Hx Alcoholism: No Hx HIV/AIDS: No Hx Splenectomy or Spleen Trauma: No Other PMH: mentally delayed, DM2, NKHH, acute kidney failure, BPH, obstrctive uropathy - Social History Smoking Status: Never smoked Alcohol Use: Sober Drug Use: None Additional Social History: Lives at [facility] - Physical Exam Exam: General Appearance: Alert, pleasant, nontoxic-appearing Eyes: Pupils equal and round, no conjunctival pallor ENT, Mouth: Mucous membranes moist Neck: Normal inspection Respiratory: Lungs are clear to auscultation Cardiovascular: Regular rate and rhythm Gastrointestinal: Abdomen is soft and nontender Genitourinary: Normal inspection Back: No CVA tenderness Neurological: A&O, nonfocal exam Skin: Warm and dry Extremities: Normal inspection Psychiatric: Mood and affect normal Constitutional: Initial Vital Signs Temperature (C) 39.5 C H 08/14/18 06:52 Heart Rate 132 H 08/14/18 06:52 Respiratory Rate 18 08/14/18 06:52 Blood Pressure 93/66 L 08/14/18 06:52 O2 Sat (%) 89 L 08/14/18 06:52 O2 Delivery Mode Nasal Cannula O2 (L/minute) 3 Allergies/Adverse Reactions: ciprofloxacin Allergy (Verified 08/14/18 06:48) levofloxacin [From Levaquin] Allergy (Verified 08/14/18 06:48) fluoroquinolones Allergy (Uncoded 08/14/18 06:48) Home Medications: Medication Instructions Recorded Acetaminophen [Tylenol 325mg (*)] 325 mg PO Q4HRS PRN 08/14/18 Acetaminophen [Tylenol ES 500 mg 500 mg PO DAILY 08/14/18 (*)] Atorvastatin Calcium [Lipitor 10 10 mg PO HS 08/14/18 mg (*)] Bisacodyl [Bisacodyl (*)] 10 mg PO HS 08/14/18 Bisacodyl [Dulcolax] 10 mg RC DAILY PRN 08/14/18 Calcium Carb W/Vit D [Calcium Carb 500 mg PO DAILY 08/14/18 W/Vit D 500/200 (*)] Dextrose Oral Gel [Glucose Gel (*)] 15 gm PO Q1H PRN 08/14/18 Finasteride [Proscar 5 MG (*)] 5 mg PO DAILY 08/14/18 Glucagon,Human Recombinant 1 mg IM DAILY PRN 08/14/18 [Glucagon Emergency Kit] Herbals/Supplements -Info Only 1 ea PO DAILY 08/14/18 Loperamide HCl [Imodium 2 mg (*)] 2 mg PO Q4HRS PRN 08/14/18 Mag Hydrox/Aluminum Hyd/Simeth 15 ml PO Q6HRS PRN 08/14/18 [Antacid Suspension] Ondansetron HCl [Zofran] 4 mg PO Q8HRS PRN 08/14/18 PE/Shark Liver/Gly/Pet,Wh 1 esvin AR Q6HRS PRN 08/14/18 [Preparation H Cream (*)] Polyethylene Glycol 3350 [Miralax 17 gm PO DAILY PRN 08/14/18 17 gm (*)] Sennosides/Docusate Sodium 1 each PO HS 08/14/18 [Senna-S Tablet] Sennosides/Docusate Sodium 2 each PO DAILY 08/14/18 [Senna-S Tablet] Sertraline HCl [Zoloft 25mg (*)] 25 mg PO DAILY 08/14/18 Skin Cleanser [Cetaphil] 1 esvin TP HS 08/14/18 Tamsulosin HCl [Flomax 0.4 MG (*)] 0.4 mg PO HS 08/14/18 diphenhydrAMINE [Benadryl Cream] 1 esvin TP Q4HRS PRN 08/14/18 Medical Decision Making ED Course/Re-evaluation: This patient presents with fever and vomiting. Meets SIRS criteria, initial lactate is normal. Likely urinary source, awaiting urinalysis. Bladder scan reveals minimal urine in the bladder. IV normal saline 2 L given. Blood sugar 165, no evidence of DKA. Tylenol 650mg orally given. 0820: I received a phone call from this pt's provider, Juanita Salvador NP. Would like to take pt back to [facility], able to give IVF and IV abx there. UA c/w UTI, urine culture sent and Rocephin 1 g IV given. Obs in ED, pt's BP adequate but borderline. MAP 72-75. Advise admission for close observation, IV abx and IVF. d/w pt's provider, Juanita, agrees with plan. The hospitalist service was consulted. The patient remained stable throughout his emergency department stay. Differential Diagnosis: Differential diagnosis includes pyelonephritis, cholecystitis, influenza, cellulitis, pneumonia, abscess, meningitis. - Data Points Laboratory Results: Laboratory Results 08/14/18 06:51 08/14/18 06:51 Microbiology Results: MICROBIOLOGY 08/14/18 07:11 Blood Blood Culture - Preliminary Gram Negative Eddi 08/14/18 07:10 Blood Blood Culture - Preliminary Gram Negative Eddi 08/14/18 07:10 Blood Blood Panel (PCR) - Final Proteus Species Medications Given: Acetaminophen (Tylenol) 325 mg PO Q4HRS PRN PRN Reason: Pain, Mild Stop: 02/10/19 14:23 Last Admin: 08/15/18 08:44 Dose: 325 mg Atorvastatin Calcium (Lipitor) 10 mg PO HS SHANICE Stop: 02/10/19 20:59 Last Admin: 08/14/18 20:10 Dose: 10 mg Bisacodyl (Bisacodyl) 10 mg PO HS SHANICE Stop: 02/10/19 20:59 Last Admin: 08/14/18 20:10 Dose: 10 mg Sodium Chloride (Ns) 1,000 mls @ 75 mls/hr IV CONT SHANICE Stop: 02/10/19 14:44 Last Admin: 08/14/18 15:26 Dose: 1,000 mls Melatonin (Melatonin) 3 mg PO HS SHANICE Stop: 02/10/19 20:59 Last Admin: 08/14/18 20:10 Dose: 3 mg Senna/Docusate Sodium (Senokot-S) 1 tab PO [facility] Stop: 02/10/19 20:59 Last Admin: 08/14/18 20:11 Dose: 1 tab Tamsulosin HCl (Flomax) 0.4 mg PO [facility] Stop: 02/10/19 20:59 Last Admin: 08/14/18 20:10 Dose: 0.4 mg Discontinued Medications Acetaminophen (Tylenol) 650 mg PO EDNOW ONE Stop: 08/14/18 07:04 Last Admin: 08/14/18 07:38 Dose: 650 mg Sodium Chloride (Ns) 1,000 mls @ 0 mls/hr IV EDNOW ONE; Wide Open PRN Reason: Protocol Stop: 08/14/18 07:10 Last Admin: 08/14/18 07:38 Dose: 1,000 mls Sodium Chloride (Ns) 1,000 mls @ 0 mls/hr IV ONCE ONE; Wide Open PRN Reason: Protocol Stop: 08/14/18 10:27 Last Admin: 08/14/18 10:34 Dose: 1,000 mls Ceftriaxone Sodium/Dextrose (Rocephin 1 Gm (Premix)) 50 mls @ 100 mls/hr IV EDNOW ONE PRN Reason: Protocol Stop: 08/14/18 11:29 Last Admin: 08/14/18 11:20 Dose: 50 mls Departure - Departure Disposition: Home, Routine, Self-Care Clinical Impression: Dehydration Urinary tract infection Qualifiers: Urinary tract infection type: site unspecified Hematuria presence: with hematuria Qualified Code(s): N39.0 - Urinary tract infection, site not specified ; R31.9 - Hematuria, unspecified; R31.9 - Hematuria, unspecified Condition: Good
[2018-08-14] MEDS ORDERED: LIDOCAINE 2% JELLY 20 ML (UROJECT) ONE (10:10)
--- NOTE | 2018-08-14 14:16 | PDGENHP ---
History and Physical History and Physical: CC: Nausea vomiting chills HISTORY: ROS: A comprehensive 10 system review revealed no other significant findings PAST MEDICAL HISTORY: Diabetes mellitus, 1 episode of DKA at the time of diabetes diagnosis, but currently not on insulin therapy Developmental delay Urinary tract infection versus colonization from Harris catheter Prolonged QT interval Acute renal insufficiency during acute illness Chronic indwelling Harris catheter FAMILY MEDICAL HISTORY: Father had lymphoma SOCIAL HISTORY: Lives at [facility] MEDICATIONS: The patients list has been reconciled by our clinical pharmacist in the EMR. I have reviewed the list and ordered appropriate medicines. PHYSICAL EXAMINATION: Vital Signs: Supervisor Drying And Softening: Examination: General: alert, oriented, good mentation, relaxed Skin: warm, dry, good color, no rash HEENT: normal Neck: no mass or jvd Resps: relaxed Lungs: clear breath sounds Heart: regular, no murmur Abdomen: soft, nondistended, nontender, +BS, no mass Upper Extremities: normal Lower Extremities: no edema, warm No Bleeding or bruising Neurologic: normal speech/language, normal yardage estimator, no focal weakness IV site: looks normal LABORATORY DATA: White blood cell count 33143 with predominance in neutrophils, minimal normocytic anemia Normal lactic acid at 1.6 BUN elevated 26 creatinine 1.5 with most recent baseline creatinine 0.7, electrolytes good so far RADIOLOGY STUDIES: I reviewed images from chest x-ray two view done in the ER, there is hypoventilation with crowding of normal lung structures but no acute abnormalities otherwise ASSESSMENT: * Acute early sepsis * Acute urinary tract infection, complicated, with dysuria pyuria fevers and sepsis * Acute nausea vomiting with fever, suspect possible gastroenteritis versus a reaction to sepsis * Acute hypotension and tachycardia due to above as well as dehydration * Acute kidney injury due to above * Developmental delay * Diabetes mellitus currently not on insulin therapy though has a history of DKA ; 1st glucose here 162 This patient will need ongoing IV antibiotics at this time while we wait for cultures to test for resistant bacteria particularly as he is living in a nursing facility. This is therefore healthcare associated infection. Will need ongoing IV hydration, antiemetics, and careful management of sugars Is unclear to me how the patient is doing well without treatment for his diabetes as he has had ketoacidosis but there is no evidence of ketoacidosis right now in the sugar is in reasonable shape to start with. PLANS: * Inpatient admission * Aggressive IV fluid hydration * Follow renal function and electrolytes closely * Follow sugars closely and manage as indicated with insulin therapy * GI pathogen panel I have reviewed the patient's case in detail with Dr. Jennifer Barone I have reviewed the patient's past medical records as part of this assessment, including previous hospital admission records
[2018-08-14] MEDS ORDERED: POLYETHYLENE GLYCOL 3350 17 GM PKT PO PRN (14:24)
[2018-08-14] MEDS ORDERED: BISACODYL 10 MG SUPP PR PRN (14:24)
[2018-08-14] MEDS ORDERED: PREPARATION H 51 GM CRTUBE PR PRN (14:24)
[2018-08-14] MEDS ORDERED: DIPHENHYDRAMINE CREAM TP PRN (14:24)
[2018-08-14] MEDS ORDERED: GLUCOSE-INSTA 15 GM TUBE PO PRN (14:24)
[2018-08-14] MEDS ORDERED: LOPERAMIDE HCL 2 MG CAP PO PRN (14:24)
[2018-08-14] MEDS ORDERED: ONDANSETRON DISINTEGRATING 4 MG TAB PO PRN (14:46)
[2018-08-14] MEDS: NS 1,000 ML IV SCH (15:26)
[2018-08-14] MEDS: TAMSULOSIN HCL 0.4 MG CAP PO SCH (20:10)
[2018-08-14] MEDS: MELATONIN 3 MG TAB PO SCH (20:10)
[2018-08-14] MEDS: BISACODYL 5 MG EC TAB PO SCH (20:10)
[2018-08-14] MEDS: ATORVASTATIN CALCIUM 10 MG TAB PO SCH (20:10)
[2018-08-14] MEDS: SENNOSIDES/DOCUSATE SODIUM TAB PO SCH (20:11)
[2018-08-15] MEDS: ACETAMINOPHEN 325 MG TAB PO PRN ×2 (08:44→22:00)
[2018-08-15] MEDS ORDERED: NS 1,000 ML IV ONE ×3 (10:04→11:43)
--- NOTE | 2018-08-15 10:36 | HOSPPROG ---
Hospitalist Progress Note Assessment/Plan: DIAGNOSES: * Recurrence of Acute sepsis onset this morning after rapidly resolution of tachycardia and hypotension yesterday * Complicated urinary tract infection * Proteus bacteremia suspected urinary source * Acute kidney injury * Developmental delay PLANS: * Aggressive IV fluid boluses have been started at this time * Continue empiric antibiotics waiting for sensitivities and Proteus bacteremia * Recheck lactic acid and other laboratory test for sepsis * Check 12 lead EKG to be certain we are dealing with sinus tachycardia SUBJECTIVE: Feels hungry Has had some significant rigors just recently that have stopped OBJECTIVE Vitals reviewed: Pulse 115-120 now, 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 His creatinine had improved to normal, BUN still slightly elevated rest of metabolic panel normal Microbiology: Blood cultures growing a Proteus species not fully identified and sensitivities not yet done Urine culture with a gram-negative akbar non lactose fermenting Objective: Vital Signs Temp Pulse Resp BP Pulse Ox 36.8 C 123 H 22 H 149/80 H 94 08/15/18 07:48 08/15/18 07:48 08/15/18 07:48 08/15/18 07:48 08/15/18 07:48 Laboratory Results 08/15/18 04:54 08/14/18 08/15/18 08/16/18 06:59 06:59 06:59 Intake Total 250 Output Total 225 Balance 25 PT 14.6 SEC (12.0-15.0) 08/14/18 06:51 INR 1.19 (0.83-1.16) H 08/14/18 06:51 - Time Spent With Patient Time Spent with Patient: greater than 35 minutes Time Spent with Patient: Greater than 35 minutes spent on this patients care, greater than 50% of time spent counseling, educating, and coordinating care regarding the above mentioned plan. ICD10 Worksheet Patient Problems: Problems Problem Status Onset Dehydration Acute Urinary tract infection Acute DKA (diabetic ketoacidoses) Acute Hyperkalemia Acute Ketoacidosis Acute
[2018-08-15] MEDS: SENNOSIDES/DOCUSATE SODIUM TAB PO SCH ×2 (10:46→20:27)
[2018-08-15] MEDS: SERTRALINE HCL 25 MG TAB PO SCH (10:46)
[2018-08-15] MEDS: CALCIUM CARB W/VIT D 500 MG TAB PO SCH (10:46)
[2018-08-15] MEDS: ENOXAPARIN 40 MG/0.4 ML SYR SC SCH (10:47)
[2018-08-15] MEDS: FINASTERIDE 5 MG TAB PO SCH (10:47)
[2018-08-15 10:54] LABS: INR 1.25 (0.83-1.16); PROTIME(PATIENT) 15.2 SEC (12.0-15.0)
[2018-08-15 11:18] LABS: PLATELET COUNT 208 10^3/uL (150-400)
--- NOTE | 2018-08-15 11:55 | PDMN ---
Medical Necessity Medical necessity: Pt meets inpt criteria per MD order and MCG M-160, Sepsis and Other Febrile Illness, without Focal Infection, hemodynamic instability: hypotensive this AM despite >24 hrs obs care and febrile w/Tmax of 103.1 this AM. 62 y/o w/hx developmental delay lives at long-term and DM, presented w/N/V and chills found to have sepsis, acute complicated UTI, acute N/V- possibly due to sepsis or gastroenteritis, acute hypotension/tachycardia/dehydration, and ROBBIE due to above, proteus bacteremia suspected urinary source. Anticiapte>2MN for ongoing IV hydration, IV ABX's, IV antiemetics, GI path panel pending, flollow renal function, and bl sugar management.
[2018-08-15] MEDS ORDERED: ALTEPLASE 2 MG VIAL IVP PRN (14:43)
[2018-08-15] MEDS ORDERED: ALBUMIN 25% 100 ML IV ONE (14:44)
[2018-08-15] MEDS: CEFEPIME HCL 1 GM in NS 50 ML IV SCH ×2 (14:55→21:19)
--- NOTE | 2018-08-15 15:20 | GCON ---
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 HISTORY OF PRESENT ILLNESS: The patient is a very pleasant 62-year-old white male with a past medica l history including developmental delay, diabetes mellitus, and a chronic indwelling Harris. He was a dmitted on August 14 with a urinary tract infection. He presented with chills, nausea, and vomiting, as well as rigors. In discussion with the patient, he states he feels markedly improved from admissi on. He states he feels quite well at this point and wonders why he was transferred to the intensive care unit. He denies any cough or production of sputum. There is no chest pain, pleuritic-type ches t pain, or anginal equivalent. He is currently resting comfortably. REVIEW OF SYSTEMS: A 10-point review of systems is performed and negative except for what is listed in HPI. PAST MEDICAL HISTORY: Again, significant for diabetes, developmental delay, and prolonged QT interva l. FAMILY HISTORY: Noncontributory. SOCIAL HISTORY: No history of tobacco use. No history of alcohol use. He resides at [facility]. He states he previously worked at the [employer]. He is single, without children. He has lived in [place] all of his life. MEDICATIONS: Include Tylenol, atorvastatin, bisacodyl, Proscar, Imodium, Zofran, polyethylene glycol , senna, sertraline, tamsulosin, and Benadryl. PHYSICAL EXAM: VITAL SIGNS: Current blood pressure is 96/57, pulse 80, respirations 16, temperature 37.4, and oxygen saturation 96% on 1.5 L. GENERAL: He is a well-developed 62-year-old white male, who is resting comfortably in no acute distress. HEENT: Eyes are PERRLA and EOMI. Throat shows no erythema nor tonsillar hypertrophy. NECK: Supple. There is no cervical adenopathy. HEART: Regula r rate and rhythm without murmurs, rubs, or gallops. LUNGS: Diminished breath sounds, but no wheeze . ABDOMEN: Soft and nontender. Bowel sounds present in all 4 quadrants. EXTREMITIES: No clubbing , cyanosis, or edema. LABORATORIES: White count is 9.46; this is down from 16.4. Hemoglobin 9.7, hematocrit 30, and plate let count 208. INR is 1.25. Sodium 136, potassium 4.0, chloride 106, CO2 of 23, BUN 25, creatinine 1, and glucose 112. Urinalysis shows pH 5, specific gravity 1.026, 50 to 182 WBCs, as well as RBCs, and 4+ bacteria. IMPRESSION: 1. Urinary tract infection. 2. Sepsis. 3. Mild hypotension. 4. Type 1 diabetes. 5. Developmental delay. 6. Mild anemia. RECOMMENDATION: 1. Continue sepsis protocol. 2. Aggressive blood sugar control. 3. We will give albumin now. 4. We will obtain a PICC line. 5. Agree with current antibiotic coverage. 6. Close cardiovascular monitoring. 7. DVT and PE prophylaxis. 8. Stress ulcer prophylaxis. /[id number]/MODL
--- NOTE | 2018-08-15 15:34 | CPEKG ---
Test Reason : OPEN Blood Pressure : / mmHG Vent. Rate : 105 BPM Atrial Rate : 105 BPM P-R Int : 147 ms QRS Dur : 093 ms QT Int : 330 ms P-R-T Axes : 009 067 -04 degrees QTc Int : 437 ms Sinus tachycardia Confirmed by Roxy Burnham ([id number]) on 08/15/2018 3:33:53 PM Referred By: Akbar Sainz Confirmed By:Roxy Burnham
[2018-08-15] MEDS: NS 1,000 ML IV SCH (18:23)
[2018-08-15] MEDS: MELATONIN 3 MG TAB PO SCH (20:27)
[2018-08-15] MEDS: ATORVASTATIN CALCIUM 10 MG TAB PO SCH (20:27)
[2018-08-15] MEDS: TAMSULOSIN HCL 0.4 MG CAP PO SCH (20:27)
[2018-08-15] MEDS: BISACODYL 5 MG EC TAB PO SCH (20:33)
[2018-08-16] MEDS: ACETAMINOPHEN 325 MG TAB PO PRN (02:10)
[2018-08-16] MEDS: NS 1,000 ML IV SCH (06:09)
[2018-08-16] MEDS: CEFEPIME HCL 1 GM in NS 50 ML IV SCH ×3 (06:10→20:30)
--- NOTE | 2018-08-16 08:46 | HOSPPROG ---
Hospitalist Progress Note Assessment/Plan: DIAGNOSES: * Acute severe sepsis with lactic acidosis * Complicated urinary tract infection * Proteus bacteremia suspected urinary source, sensitivity still pending * Acute kidney injury * Developmental delay PLANS: * Continue empiric cefepime awaiting Proteus sensitivities * Continue IV fluids * May transfer back to [facility] today Seen by me on hospitalist rounds I reviewed in detail today with Dr. Hilton Hollis SUBJECTIVE: Feeling better this morning Still some rigors during night Was able to get by without pressors overnight OBJECTIVE Vitals reviewed: Vital signs now stable, T-max during night 38.5 Exam: alert oriented skin warm and dry resps not labored lungs clear BSs heart regular abd soft nondistended nontender, bowel sounds present limbs warm, no edema iv site ok Lab data: Sugars remained in good range Microbiology: Blood cultures growing a Proteus species not fully identified and sensitivities not yet done Urine culture with a gram-negative akbar non lactose fermenting Objective: Vital Signs Temp Pulse Resp BP Pulse Ox 36.6 C 81 19 104/57 L 97 08/16/18 08:25 08/16/18 08:25 08/16/18 08:25 08/16/18 08:25 08/16/18 08:25 Laboratory Results 08/15/18 10:33 08/15/18 04:54 08/15/18 08/16/18 08/17/18 06:59 06:59 06:59 Intake Total 250 1763 Output Total 225 250 Balance 25 1513 PT 15.2 SEC (12.0-15.0) H 08/15/18 10:33 INR 1.25 (0.83-1.16) H 08/15/18 10:33 ICD10 Worksheet Patient Problems: Problems Problem Status Onset Dehydration Acute Urinary tract infection Acute DKA (diabetic ketoacidoses) Acute Hyperkalemia Acute Ketoacidosis Acute
--- NOTE | 2018-08-16 09:25 | PDINTPN ---
Vault Maker Progress Note Assessment/Plan: Assessment/plan: * Sepsis-resolved * Septic shock-resolved with fluids and albumin * Urinary tract infection-Proteus * Bacteremia * Developmental delay * Diabetes * Prolonged QT * VT prophylaxis * Stress ulcer prophylaxis * Disposition-overall markedly improved. Okay for transfer to medical surgical floor Subjective: Sitting up in bed. Resting comfortably. No current complaints. Feels markedly improved. Objective: Vital Signs Temp Pulse Resp BP Pulse Ox 36.6 C 81 19 104/57 L 97 08/16/18 08:25 08/16/18 08:25 08/16/18 08:25 08/16/18 08:25 08/16/18 08:25 Laboratory Results 08/15/18 10:33 08/15/18 04:54 08/15/18 08/16/18 08/17/18 05:59 05:59 05:59 Intake Total 250 1763 Output Total 225 250 Balance 25 1513 PT 15.2 SEC (12.0-15.0) H 08/15/18 10:33 INR 1.25 (0.83-1.16) H 08/15/18 10:33 - Time Spent With Patient Time Spent With Patient: 35 min of time spent with patient, over 1/2 involved coordination of care or counseling. Case discussed with hospitalist and nursing Physical Exam - Physical Exam General Appearance: alert, no apparent distress EENT: PERRL/EOMI Neck: non-tender, supple Respiratory: chest non-tender, lungs clear, normal breath sounds Cardiac/Chest: normal peripheral pulses, regular rate, rhythm Peripheral Pulses: 2+: carotid (R), carotid (L), femoral (R), femoral (L), dorsalis-pedis (R), dorsalis-pedis (L) Abdomen: normal bowel sounds, non-tender, soft Male Genitalia: deferred Rectal: deferred Skin: warm/dry Extremities: non-tender Neuro/Psych: alert, normal mood/affect ICD10 Worksheet Patient Problems: Problems Problem Status Onset Dehydration Acute Urinary tract infection Acute DKA (diabetic ketoacidoses) Acute Hyperkalemia Acute Ketoacidosis Acute
[2018-08-16] MEDS: CALCIUM CARB W/VIT D 500 MG TAB PO SCH (09:30)
[2018-08-16] MEDS: FINASTERIDE 5 MG TAB PO SCH (09:30)
[2018-08-16] MEDS: SERTRALINE HCL 25 MG TAB PO SCH (09:30)
[2018-08-16] MEDS: ENOXAPARIN 40 MG/0.4 ML SYR SC SCH (09:30)
[2018-08-16] MEDS: SENNOSIDES/DOCUSATE SODIUM TAB PO SCH ×2 (12:42→20:27)
[2018-08-16] MEDS: ATORVASTATIN CALCIUM 10 MG TAB PO SCH (20:26)
[2018-08-16] MEDS: MELATONIN 3 MG TAB PO SCH (20:26)
[2018-08-16] MEDS: BISACODYL 5 MG EC TAB PO SCH (20:26)
[2018-08-16] MEDS: TAMSULOSIN HCL 0.4 MG CAP PO SCH (20:26)
[2018-08-16 23:12] VITALS: BP 126/70
[2018-08-17] MEDS: CEFEPIME HCL 1 GM in NS 50 ML IV SCH (05:05)
[2018-08-17] MEDS: NS 1,000 ML IV SCH (05:05)
--- NOTE | 2018-08-17 08:47 | ASMTCMCOM ---
CM Note CM Note Notes: Late note from 08/16/18 Ptis a 62 yo M who presented with UTI. Hx of diabetes, developmental delay. At this time PT is recommending SNF and OT rec Home. CM to follow. Plan: SNF Date Signed: 08/17/2018 08:46 AM Electronically Signed By:AISSATOU Neal
[2018-08-17] MEDS: SERTRALINE HCL 25 MG TAB PO SCH (08:50)
[2018-08-17] MEDS: CALCIUM CARB W/VIT D 500 MG TAB PO SCH (08:50)
[2018-08-17] MEDS: FINASTERIDE 5 MG TAB PO SCH (08:50)
[2018-08-17] MEDS: SENNOSIDES/DOCUSATE SODIUM TAB PO SCH (08:51)
[2018-08-17] MEDS: ENOXAPARIN 40 MG/0.4 ML SYR SC SCH (08:51)
--- NOTE | 2018-08-17 09:21 | PDDCSUM ---
Discharge Summary Discharge Summary: DISCHARGE DIAGNOSES: * Acute sepsis * Complicated urinary tract infection Proteus * Proteus bacteremia * Acute kidney injury, resolved CONSULTANTS: Dr. Hilton Hollis critical care medicine PROCEDURES: PICC catheter insertion HOSPITAL COURSE SUMMARY: This patient with developmental delay who lives at a [facility]dc center came in with fevers and found to have sepsis with complicated urinary tract infection and bacteremia, Proteus growing in both urine and blood cultures. The Proteus is sensitive to all but 1 antibiotic tested. In the ER he was treated with aggressive resuscitation and his signs of the sepsis resolved fairly quickly. However 2 days later he had recurrence of sepsis with hypotension refractory to 3.5 L IV fluid bolus, and he was transferred to intensive care unit. They are not come testing should he was still fluid sensitive and further fluid resuscitation with ongoing antibiotics lead to resolution of his abnormal vital signs. His creatinine had increased to 1.5 but came back down to 1.0. There been no other complications. At this point all fever and vital sign abnormalities have resolved, he is feeling pretty much back to his normal state. He is eating well has an unremarkable examination. He is felt stable for discharge from acute care hospital but will need ongoing antibiotics. PENDING TEST RESULTS: None MEDICATION CHANGES: Levaquin for 7 days after discharge FOLLOW-UP PLAN: He will be the care of his primary care physician and staff at his fdc center Greater than 35 minutes bedside and care coordination time today
--- NOTE | 2018-08-17 09:26 | PDIAF ---
- Diagnosis Diagnosis: Complicated urinary tract infection, Proteus bacteremia, sepsis Code Status: Full Code - Medication Management [facility] Antibiotics: He needs 1 week of oral Levaquin stop after 08/23 Discharge Medications: electronically signed and located in the Home Medication List. - Orders Services needed: Registered Nurse, Certified Steward/Stewardess Night, Physical Therapy, Occupational Therapy Isolation Type: None Diet Recommendation: no restrictions on diet Diet Texture: Regular Texture Diet - Follow Up Care Current Providers and Referrals: Patient,NotPresent [Primary Care Provider] - As per Instructions
--- NOTE | 2018-08-17 14:38 | ASMTDCNOTE ---
Case Management Discharge Discharge Order Complete? Answers: Yes Patient to Obtain Answers: Other Notes: [facility] Medications Transportation Arranged Answers: Other Notes: [facility] Transport will Pick (Date 08/17/2018 12:00 AM & Time) Faxed Final Orders Answers: Yes Agency/Facility Transfer Answers: Yes Report Printed & Faxed to Receiving Agency Family Notified Answers: Yes Notes: CM called brother Yaya Discharge Comments Notes: Pt lives at [facility]. Pt to discharge today back to [facility]. RN given number for RN report. No further CM needs noted at this time. Date Signed: 08/17/2018 02:24 PM Electronically Signed By:Mely Larsen
--- NOTE | 2018-08-17 14:39 | ASDISCHSUM ---
Discharge Information Plan Status:SNF Medically Cleared to Leave:08/17/2018 Discharge Date:08/17/2018 12:23 PM D/C Disposition:Long-Term Facility ADT D/C Disposition:Long-Term Facility Projected Discharge Date:08/17/2018 12:30 PM Transportation at D/C:Wheelchair Van Discharge Delay Reason: Follow-Up Date:08/17/2018 12:30 PM Discharge Slot: Final Diagnosis:UTI sepsis Placement Information Referral Type:*Senior Living/SNF Referral ID:[id number] Provider Name:[facility] Address 1:[address] Address 2: City:[place] Selection Factors: State:[place] Patient Contact Information Contact Name:FIDENCIO Relationship:Broth Address:[address] City:[place] Alternate Phone: State/Zip Code:[place] [address] Email: Financial Information Financial Class:Medicare Advantage Plans Primary Plan Desc:[employer] Primary Plan Number:[id number] Secondary Plan Desc:[place] Secondary Plan Number:[id number] Assessment Information [facility] CM Progress Note CM Note CM Note Notes: Late note from 08/16/18 Ptis a 62 yo M who presented with UTI. Hx of diabetes, developmental delay. At this time PT is recommending SNF and OT rec Home. CM to follow. Plan: SNF Date Signed: 08/17/2018 08:46 AM Electronically Signed By:AISSATOU Neal Case Management Discharge Plan Note Case Management Discharge Discharge Order Complete? Answers: Yes Patient to Obtain Answers: Other Notes: [facility] Medications Transportation Arranged Answers: Other Notes: [facility] Transport will Pick (Date 08/17/2018 12:00 AM & Time) Faxed Final Orders Answers: Yes Agency/Facility Transfer Answers: Yes Report Printed & Faxed to Receiving Agency Family Notified Answers: Yes Notes: CM called brothmich Javier Discharge Comments Notes: Pt lives at [facility]. Pt to discharge today back to [facility]. RN given number for RN report. No further CM needs noted at this time. Date Signed: 08/17/2018 02:24 PM Electronically Signed By:Mely Larsen LACE LACE Length of stay for Answers: 3 days current admission Acuity / Level of Answers: Yes Care: Did the patient have an inpatient admission? Comorbidities - select Answers: Diabetes (uncontrolled or all that apply controlled) Other Notes: Urinary retention (harris), developmental delay # of Emergency department Answers: 1-2 visits in the last 6 months Score: 9 Date Signed: 08/17/2018 02:26 PM Electronically Signed By:Mely Larsen Intervention Information Intervention Type:IM-Pt. Not Available Date of Service:08/17/2018 11:57 AM Patient Type:Inpatient Staff Member:Elaine Gonzalez Hours: Discipline: Severity: Comment:Patient has developmental delay. Left a voicemail for his healthcare decision maker, Kj patel at [phone].
--- NOTE | 2018-08-17 14:57 | ASMTLACE ---
KRISE Length of stay for Answers: 3 days current admission Acuity / Level of Answers: Yes Care: Did the patient have an inpatient admission? Comorbidities - select Answers: Diabetes (uncontrolled or all that apply controlled) Other Notes: Urinary retention (harris), developmental delay # of Emergency department Answers: 1-2 visits in the last 6 months Score: 9 Date Signed: 08/17/2018 02:26 PM Electronically Signed By:Mely Larsen
== END 2018-08-17 12:23 | DRG 872 ==
LOC: EDUNIT# → F3E 12:33 → F2N 08-15 14:40 → F3E 08-16 15:00
PROVIDERS: ADMIT Internal Medicine; ATTEND Internal Medicine
PROC: 02HV33Z Insertion of Infusion Device into Superior Vena Cava, Percutaneous Approach (ICD-10-PCS; principal; 2018-08-15)
DX: A41.59 Other Gram-negative sepsis (principal); N39.0 Urinary tract infection, site not specified; B96.4 Proteus (mirabilis) (morganii) as the cause of diseases classified elsewhere; N17.9 Acute kidney failure, unspecified; Z96.0 Presence of urogenital implants; R62.50 Unspecified lack of expected normal physiological development in childhood; E11.9 Type 2 diabetes mellitus without complications; I45.81 Long QT syndrome; N40.1 Benign prostatic hyperplasia with lower urinary tract symptoms; N13.8 Other obstructive and reflux uropathy
CPT/HCPCS: 96374; 97162-GP; 97166-GO; 97535-GO; C1751; J0692; J0696; J1650; P9047